=== PATIENT | female | born 1980 | race African-American/Black ===

== ENCOUNTER 2023-07-05 08:44 | Outpatient (AMB) | payer OTHER, SELFPAY ==
--- NOTE | 2023-07-05 08:55 | AM.OFFVISNUR ---
Intake Intake Visit Reasons: MMR vaccine Allergies No Known Allergies Allergy (Verified 07/05/23 08:55) Immunizations M-M-R II (PF) 1,000-12,500 TCID50/0.5 mL subcutaneous solution Performing Provider: Kiley House MD [facility] Administered by: Aurora Garland RN on 07/05/23 08:56 Dose Route Admin Location Dispensed Lot Number Expiration Date NDC Immigration Judge 0.5 mL subcut Left Arm 0.5 mL [id number] 10/04/24 5713-1133-32 [employer] & D VIS Given Date VIS Provided VIS Publication Date 07/05/23 Single Vaccine 21 Eligibility Eligibility Date Funding Source Not [facility] Eligible 07/05/23 Private Coding Assessment & Plan Assessment & Plan Orders: Orders MMR Immunization Today Z23 - Encounter for immunization
== END 2023-07-05 08:56 | disposition home or self-care (01) ==
PROVIDERS: PCP Internal Medicine; Visit Provider Internal Medicine
DX: Z23 Encounter for immunization (principal)
CPT/HCPCS: 90471; 90707

== ENCOUNTER 2023-09-22 11:43 | Outpatient (AMB) | payer OTHER, SELFPAY ==
--- NOTE | 2023-09-22 11:42 | MHC.OFFWIV ---
Intake Vital Signs 09/22/23 11:44 Height 5 ft 4 in Weight 159 lb 8 oz BMI 27.4 BP 110/82 Blood Pressure Location Lt brachial Position Sitting Pulse 74 Pulse Source Pulse Oximeter Pulse Oximetry (%) 98 Oxygen Delivery Method Room Air Intake Visit Reasons: Thyroid Med Refill Patient Tobacco Use Status: Never used Tobacco Allergies No Known Allergies Allergy (Verified 09/22/23 11:45) Medication List - Last Reconciled 09/22/23 by Usha Mccall MD levothyroxine mcg PO loteprednol etabonate 0.5% (Lotemax) drps ophthalmic (eye) Do you need a note to return to daycare/school/sports/work: No HPI Thyroid Med Refill HPI Details Patient is a 42-year-old female who moved from [place] in April Before she came she had all her labs done, thyroid test was within normal limit She has been taking same dose for a while She is in need of refill levothyroxine 88 mcg She has appointment with primary care in December Medication refilled [facility] Social History Patient Tobacco Use Status: Never used Tobacco Review of Systems Const All systems reviewed & are unremarkable except as noted in HPI and below Physical Exam Vital Signs: Last Vital Signs Pulse 74 09/22/23 11:44 BP 110/82 09/22/23 11:44 Pulse Ox 98 09/22/23 11:44 Oxygen Delivery Method Room Air 09/22/23 11:44 BMI result Body Mass Index 27.4 Const General: no acute distress Orientation/consciousness: patient oriented x3 Eyes General: appearance normal, both eyes and all related structures Neck Neck: Yes no lymphadenopathy Thyroid: Thyroid normal Resp Effort & Inspection: normal respiratory effort and able to speak in complete sentences Auscultation: clear to auscultation bilaterally Cardio Other: S1 S2 Neuro General: patient oriented x3 Psych Mental Status: mental status grossly normal Assessment & Plan Assessment & Plan (1) Other specified hypothyroidism: Code(s): E03.8 - Other specified hypothyroidism Plan Patient is a 42-year-old female who moved from [place] in April Before she came she had all her labs done, thyroid test was within normal limit She has been taking same dose for a while She is in need of refill levothyroxine 88 mcg She has appointment with primary care in December Medication refilled Medications: New levothyroxine 88 mcg PO ONCE 90 tabs 0RF 90 days Coding Level of Care Code New Pt Level 3 (15625) Diagnoses Other specified hypothyroidism E03.8
[2023-09-22 11:44] VITALS: BP 110/82; PULSE 74; O2SAT 98; BMI 27.4
== END 2023-09-22 11:56 | disposition home or self-care (01) ==
PROVIDERS: PCP Internal Medicine; Visit Provider Internal Medicine
DX: E03.8 Other specified hypothyroidism (principal)
CPT/HCPCS: 99203

== ENCOUNTER 2023-12-28 08:43 | Outpatient (AMB) | payer OTHER, SELFPAY ==
--- NOTE | 2023-12-28 08:47 | A.OFFPC_ITS ---
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/U (Thyriod Meds ) Intake Note: New patient, thyroid follow up Utility Assembler Required: No Accompanied by: Self / Same As Patient Allergies No Known Allergies Allergy (Verified 12/28/23 08:56) Medication List - Last Reconciled 12/28/23 by Kiley House MD levothyroxine 88 mcg PO ONCE 90 days loteprednol etabonate 0.5% (Lotemax) drps ophthalmic (eye) Tobacco use date assessed: 12/28/23 Dental Screening Dental Screen Date: 12/28/23 Did you have a dental visit in the last 12 months?: Yes Did you have a dental problem in the last 6 months where you did not have access to dental care?: No Was dental information given to patient?: Patient has dentist HPI HPI Comments History of Present Illness0 Details This is a 43-year-old female with hypothyroidism, dry eyes and overweight that comes to establish care. Compliant with medications. TSH will be order. Also has family history of diabetes and would like to have some fasting labs. Dry eyes are well control with artificial tears and follows with Ophthalmology. She is overweight and was advised to do diet and exercise. No chest pain or shortness on breath. No change in bowel or bladder habits. [facility] Surgical History No pertinent past surgical history Family History Mother Diabetes Father No problems noted. Family/Other Substance use disorder Mental health disorder Social History (Updated 12/28/23 @ 09:01 by Kiley House MD) Housing: House Alcohol intake: current Alcohol intake frequency: holidays/special occasions only Alcohol type: wine Patient Tobacco Use Status: Former Tobacco user e-Cigarette/Vaping Use: Never Used Second Hand Smoke Exposure: No service: No Current occupational status: employed Current occupational exposures/hazards: No Cognitive needs: No Hearing needs: No Vision needs: Yes Questionnaire PHQ-9 Over the last 2 weeks, how often have you been bothered by any of the following problems? 1. Little interest or pleasure in doing things: not at all 2. Feeling down, depressed, or hopeless: not at all 3. Trouble falling or staying asleep, or sleeping too much: not at all 4. Feeling tired or having little energy: not at all 5. Poor appetite or overeating: not at all 6. Feeling bad about yourself - or that you are a failure or have let yourself or your family down: not at all 7. Trouble concentrating on things, such as reading the newspaper or watching television: not at all 8. Moving or speaking so slowly that other people could have noticed. Or the o pposite - being so fidgety or restless that you have been moving around a lot more than usual: not at all 9. Thoughts that you would be better off or of hurting yourself in some way: not at all Total score: 0 Depression Screening Interpretation: Negative Depression Screening Done: Yes 07446 - PHQ-9 Billing: Yes Source: Developed by Drs. Gold Jimenez, Sima Villalobos, Alexis Madrid and colleagues, with an educational garrett from [employer]. Thrive Questionnaire Date Thrive assessed: 12/28/23 I am a: Patient What is your living situation today?: I have a steady place to live Within the past 12 months, did the food you bought not last and you didn't have the money to get more?: Never true Within the past 12 months, did you worry whether your food would run out before you got money to buy more?: Never true Do you have trouble paying for medicines?: No Do you have trouble getting transportation to medical appointments?: No Do you have trouble paying your heating and electricity bill?: No Do you have trouble taking care of your child, family member or friend?: No Do you have trouble with day-to-day activities such as bathing, preparing meals, shopping, managing finances, etc.?: No Are you currently unemployed and looking for a job?: No Are you interested in more education?: No Please select the resources that you would like help with: None Currently or been in a relationship where the following occur: no concerns reported THRIVE Score: 0 AUDIT C Alcohol Use Questionnaire (AUDIT-C) 1. How often do you have a drink containing alcohol?: Never Total Score: 0 Score Reviewed/Action Taken: No NGHIA-7 AMB Questionnaire NGHIA-7 Date NGHIA - 7 assessed: 12/28/23 Feeling nervous, anxious, or on edge: 0 = Not at all Not being able to stop or control worryin = Not at all Worrying too much about different things: 0 = Not at all Trouble relaxin = Not at all Being so restless that it is hard to sit still: 0 = Not at all Becoming easily annoyed or irritable: 0 = Not at all Feeling afraid as if something awful might happen: 0 = Not at all Total NGHIA-7 score (0-4 normal; 5-9 mild; 10-14 moderate; 15-21 severe): 0 Source: Developed by Drs. Gold Jimenez, Sima Villalobos, Alexis Madrid and colleagues, with an educational garrett from [employer]. NGHIA-7 Assessment Billing NGHIA-7 Assessment Tool: NGHIA-7 Assessment 92908 Review of Systems Const All systems reviewed & are unremarkable except as noted in HPI and below Eyes Reports no additional complaints, Denies change in vision and Denies other visual disturbances Card Denies chest pain at rest, Denies chest pain with activity, Denies edema, Denies irregular heart rhythm, Denies claudication, Denies dyspnea, Denies dyspnea on exertion, Denies orthopnea, Denies paroxysmal nocturnal dyspnea and Denies slow heart rate Resp Denies cough, Denies dyspnea and Denies dyspnea on exertion Musc Denies atrophy, Denies deformity and Denies limited range of motion Physical exam (Primary Care) Vital Signs: Last Vital Signs BP 108/70 12/28/23 08:48 BMI result Body Mass Index 26.1 Tobacco/Smoking Status: Tobacco use Status Tobacco use date assessed 12/28/23 12/28/23 08:53 Patient Tobacco Use Status Former Tobacco user 12/28/23 09:01 e-Cigarette/Vaping Use Never Used 12/28/23 09:01 PHQ-9: PHQ-9 Score PHQ-9: Total score 0 12/28/23 08:59 Depression Screening Interpretation: Negative Thrive Assessment: Date of Thrive Assessment Date Thrive assessed 12/28/23 12/28/23 08:53 Currently or been in a relationship where the following occur: no concerns reported Resp Effort & Inspection: normal respiratory effort Auscultation: clear to auscultation bilaterally Cardio Jugular venous distension: no JVD Rate: regular rate Rhythm: regular rhythm Heart sounds: S1 normal heart sound present and S2 normal heart sound present Extrem General: Yes full ROM Assessment and Plan Assessment & Plan (1) Hypothyroidism: Code(s): E03.9 - Hypothyroidism, unspecified Plan: Continue levothyroxine. Monitor TSH. (2) Dry eyes: Code(s): H04.123 - Dry eye syndrome of bilateral lacrimal glands Plan: Continue artificial tears. (3) Over weight: Code(s): E66.3 - Overweight Plan: Start diet and exercise. Orders: Orders Thyroid Stimulating Hormone Today E03.9 - Hypothyroidism, unspecified Comprehensive [place]. Panel Fast Today E66.3 - Overweight Lipid Panel Today E66.3 - Overweight Medications: Refilled levothyroxine 88 mcg PO ONCE 90 tabs 0RF 90 days Coding Level of Care Code Est Pt Level 3 (15941) Complex EM visit Add On G2211 Diagnoses Hypothyroidism E03.9 Dry eyes H04.123 Over weight E66.3 Additional Codes NGHIA-7 Assessment Billing - NGHIA-7 Assessment Tool: NGHIA-7 Assessment 85255 ([id number]) Time Spent (min) 21
[2023-12-28 08:48] VITALS: BP 108/70; BMI 26.1
== END 2023-12-28 09:10 | disposition home or self-care (01) ==
PROVIDERS: PCP Internal Medicine; Visit Provider Internal Medicine
DX: E03.9 Hypothyroidism, unspecified (principal); H04.123 Dry eye syndrome of bilateral lacrimal glands; E66.3 Overweight
CPT/HCPCS: 99213; G2211

== ENCOUNTER 2024-04-22 08:15 | Outpatient (REF) | payer OTHER, SELFPAY ==
[2024-04-22 10:04] LABS: Alanine Aminotransferase 25 U/L (0-31); Albumin Level 4.2 g/dL (3.5-5.0); Alkaline Phosphatase 87 U/L (39-117); Anion Gap 9 (12-20); Aspartate Amino Transferase 28 U/L (5-31); Bilirubin Total 0.4 mg/dL (0.0-1.0); Blood Urea Nitrogen 9 mg/dL (9-16); Calcium 9.9 mg/dL (8.4-10.2); Carbon Dioxide 28 mmol/L (22-29); Chloride 105 mmol/L (96-108); Cholesterol 182 mg/dL (<200); Estimated Glomerular Filt Rate > 60; Glucose Fasting 85 mg/dL (60-99); HDL Cholesterol 37 mg/dL (>40); LDL Cholesterol Calculated 128 mg/dL (<100); Potassium 4.3 mmol/L (3.3-5.1); Sodium 138 mmol/L (135-145); Total Protein 8.7 g/dL (6.5-8.0); Triglycerides 88 mg/dL (<150)
[2024-04-22 10:06] LABS: Thyroid Stimulating Hormone 3.35 uIU/mL (0.32-4.0)
== END 2024-04-22 08:16 | disposition home or self-care (01) ==
LOC: HO.LAB 08:15
PROVIDERS: PCP Internal Medicine; Visit Provider Internal Medicine
DX: E66.3 Overweight (principal); E03.9 Hypothyroidism, unspecified
CPT/HCPCS: 36415; 80053; 80061; 84443

== ENCOUNTER 2024-05-28 08:45 | Outpatient (AMB) | payer OTHER, SELFPAY ==
[2024-05-28 08:53] VITALS: BP 110/70; BMI 26.3
--- NOTE | 2024-05-28 08:53 | MHC.PC.OV ---
Vital Signs 05/28/24 08:53 Height 5 ft 4 in Weight 153 lb BMI 26.3 BP 110/70 Blood Pressure Location Lt brachial Position Sitting Intake Visit Reasons: Annual Exam Intake Note: Patient here for a physical exam Roofer Required: No Accompanied by: Self / Same As Patient Allergies No Known Allergies Allergy (Verified 05/28/24 09:06) Medication List - Last Reconciled 05/28/24 by Kiley House MD levothyroxine 88 mcg PO ONCE 90 days loteprednol etabonate 0.5% (Lotemax) drps ophthalmic (eye) Tobacco use date assessed: 12/28/23 Dental Screening Dental Screen Date: 05/28/24 Did you have a dental visit in the last 12 months?: Yes Did you have a dental problem in the last 6 months where you did not have access to dental care?: No Was dental information given to patient?: Patient has dentist HPI HPI Comments History of Present Illness Details This is a 43-year-old female that comes for her physical exam. Needs mammogram. Pap smears are up-to-date as per patient. Complains of low back pain that does not radiate to the legs and is not associated with leg numbness or tingling. This started after moving a heavy patient. The pain gets relieved by stretching exercises. X-ray will be ordered. Also has elevated total protein that will be repeated. [facility] Surgical History No pertinent past surgical history Family History Mother Diabetes Father No problems noted. Family/Other Substance use disorder Mental health disorder Social History Housing: House Alcohol intake: current Alcohol intake frequency: holidays/special occasions only Alcohol type: wine Patient Tobacco Use Status: Former Tobacco user e-Cigarette/Vaping Use: Never Used Second Hand Smoke Exposure: No service: No Current occupational status: employed Current occupational exposures/hazards: No Cognitive needs: No Hearing needs: No Vision needs: Yes Questionnaire PHQ-9 Over the last 2 weeks, how often have you been bothered by any of the following problems? 1. Little interest or pleasure in doing things: not at all 2. Feeling down, depressed, or hopeless: several days 3. Trouble falling or staying asleep, or sleeping too much: not at all 4. Feeling tired or having little energy: not at all 5. Poor appetite or overeating: not at all 6. Feeling bad about yourself - or that you are a failure or have let yourself or your family down: not at all 7. Trouble concentrating on things, such as reading the newspaper or watching television: several days 8. Moving or speaking so slowly that other people could have noticed. Or the opposite - being so fidgety or restless that you have been moving around a lot more than usual: not at all 9. Thoughts that you would be better off or of hurting yourself in some way: not at all Total score: 2 Depression Screening Interpretation: Positive Depression Screening Follow-up: Existing condition and Follow-up Visit Requested Depression Screening Done: Yes 37414 - PHQ-9 Billing: Yes Source: Developed by Drs. Gold Jimenez, Sima Villalobos, Alexis Madrid and colleagues, with an educational garrett from [employer]. Thrive Questionnaire Date Thrive assessed: 05/28/24 I am a: Patient What is your living situation today?: I have a steady place to live Within the past 12 months, did the food you bought not last and you didn't have the money to get more?: Never true Within the past 12 months, did you worry whether your food would run out before you got money to buy more?: Never true Do you have trouble paying for medicines?: No Do you have trouble getting transportation to medical appointments?: No Do you have trouble paying your heating and electricity bill?: No Do you have trouble taking care of your child, family member or friend?: No Do you have trouble with day-to-day activities such as bathing, preparing meals, shopping, managing finances, etc.?: No Are you currently unemployed and looking for a job?: No Are you interested in more education?: Yes Please select the resources that you would like help with: None Currently or been in a relationship where the following occur: I choose not to answer THRIVE Score: 0 AUDIT C Alcohol Use Questionnaire (AUDIT-C) 1. How often do you have a drink containing alcohol?: Never Total Score: 0 NGHIA-7 AMB Questionnaire NGHIA-7 Date NGHIA - 7 assessed: 05/28/24 Feeling nervous, anxious, or on edge: 3 = Nearly every day Not being able to stop or control worryin = Nearly every day Worrying too much about different things: 3 = Nearly every day Trouble relaxin = Not at all Being so restless that it is hard to sit still: 0 = Not at all Becoming easily annoyed or irritable: 1 = Several days Feeling afraid as if something awful might happen: 0 = Not at all Total NGHIA-7 score (0-4 normal; 5-9 mild; 10-14 moderate; 15-21 severe): 10 Source: Developed by Drs. Gold Jimenez, Sima Vlilalobos, Alexis Madrid and colleagues, with an educational garrett from [employer]. NGHIA-7 Assessment Billing NGHIA-7 Assessment Tool: NGHIA-7 Assessment 03020 Review of Systems Const All systems reviewed & are unremarkable except as noted in HPI and below Card Denies chest pain at rest, Denies chest pain with activity, Denies edema, Denies irregular heart rhythm, Denies claudication, Denies dyspnea, Denies dyspnea on exertion, Denies orthopnea, Denies paroxysmal nocturnal dyspnea and Denies slow heart rate Resp Denies cough, Denies dyspnea and Denies dyspnea on exertion GI Denies abdominal pain, Denies change in bowel habits, Denies excessive flatus, Denies nausea and Denies vomiting Musc Reports back pain Neuro Denies behavioral changes and Denies lack of coordination Psych Denies behavioral changes Physical exam (Primary Care) Vital Signs: Last Vital Signs BP 110/70 05/28/24 08:53 BMI result Body Mass Index 26.3 Tobacco/Smoking Status: Tobacco use Status Tobacco use date assessed 12/28/23 05/28/24 08:59 Patient Tobacco Use Status Former Tobacco user 05/28/24 08:59 e-Cigarette/Vaping Use Never Used 05/28/24 08:59 PHQ-9: PHQ-9 Score PHQ-9: Total score 2 05/28/24 09:23 Depression Screening Interpretation: Positive Depression Screening Follow-up: Existing condition and Follow-up Visit Requested Thrive Assessment: Date of Thrive Assessment Date Thrive assessed 05/28/24 05/28/24 08:59 Currently or been in a relationship where the following occur: I choose not to answer HENMT Head: Yes normal to inspection, Yes normocephalic and Yes atraumatic Ears: external ears normal Eyes General: appearance normal, both eyes and all related structures Eyelids: Yes eyelids normal Conjunctivae: conjunctivae normal Neck Neck: Yes normal visual inspection and Yes supple Resp Effort & Inspection: normal respiratory effort Auscultation: clear to auscultation bilaterally Cardio Jugular venous distension: no JVD Rate: regular rate Rhythm: regular rhythm Heart sounds: S1 normal heart sound present and S2 normal heart sound present GI Inspection: Yes normal to inspection Palpation (GI): Soft to palpation and nontender Auscultation: normal bowel sounds Skin General skin exam: no rashes or lesions noted Neuro General: no focal motor deficits Extrem General: Yes full ROM Psych Appearance: grossly normal Office Procedures Flu Questionnaire Does the patient have a severe egg allergy?: No Immunizations Fluarix Triv [id number] (PF) 45 mcg (15 mcg x 3)/0.5 mL IM syringe Performing Provider: Kiley House MD [facility] [place] Documented (not given) by: ALMAZ Canales on 05/28/24 09:23 Reason Not Given: Not Given Coding Level of Care Code Est Pt Level 3 (79392) Est Pt Prev Care 40-64y(71948) Diagnoses Physical exam Z00.00 Lumbar pain M54.50 Elevated total protein R77.8 Additional Codes NGHIA-7 Assessment Billing - NGHIA-7 Assessment Tool: NGHIA-7 Assessment 31686 ([id number]) Time Spent (min) 32 Assessment & Plan Assessment & Plan (1) Physical exam: Code(s): Z00.00 - Encounter for general adult medical examination without abnormal findings Category: Medical Plan: Repeat in a year. (2) Lumbar pain: Code(s): M54.50 - Low back pain, unspecified Category: Medical Plan: X-ray ordered. Continue doing stretching exercises. (3) Elevated total protein: Code(s): R77.8 - Other specified abnormalities of plasma proteins Category: Medical Plan: Repeat elevated total protein. Protein electrophoresis ordered. Orders: Orders Influenza [id number] Immunization Today Z23 - Encounter for immunization MM tomosynthesis screening BI Today Z12.31 - Encounter for screening mammogram for malignant neoplasm of breast Total Protein Today R77.8 - Other specified abnormalities of plasma proteins XR lumbar spine 2-3V Today M54.50 - Low back pain, unspecified Protein Electrophoresis, Serum Today R77.8 - Other specified abnormalities of plasma proteins
== END 2024-05-28 09:30 | disposition home or self-care (01) ==
LOC: HO.HMCH 08:45
PROVIDERS: PCP Internal Medicine; Visit Provider Internal Medicine
DX: Z00.00 Encounter for general adult medical examination without abnormal findings (principal); M54.50 Low back pain, unspecified; R77.8 Other specified abnormalities of plasma proteins

== ENCOUNTER → 2024-05-28 08:45 | Outpatient (BNVA) | payer OTHER, SELFPAY | PROVIDERS: PCP Internal Medicine; Visit Provider Internal Medicine | DX: Z00.01 Encounter for general adult medical examination with abnormal findings (principal); M54.50 Low back pain, unspecified; R77.8 Other specified abnormalities of plasma proteins | CPT/HCPCS: 96127 ==

== ENCOUNTER 2024-05-31 08:09 | Outpatient (REF) | payer OTHER, SELFPAY ==
[2024-05-31 09:22] LABS: Total Protein 8.5 g/dL (6.5-8.0)
[2024-06-03 12:43] LABS: Prot Elec - Albumin 4.2 g/dL (3.8-4.8); Prot Elec - Alpha1 0.3 g/dL (0.2-0.3); Prot Elec - Alpha2 0.8 g/dL (0.5-0.9); Prot Elec - Beta 1 0.4 g/dL (0.4-0.6); Prot Elec - Beta 2 0.4 g/dL (0.2-0.5); Prot Elec - Total Protein 8.1 g/dL (6.1-8.1)
== END 2024-05-31 08:10 | disposition home or self-care (01) ==
LOC: HO.LAB 08:09
PROVIDERS: PCP Internal Medicine; Visit Provider Internal Medicine
DX: R77.8 Other specified abnormalities of plasma proteins (principal); Z23 Encounter for immunization
CPT/HCPCS: 36415; 84155; 84165; 90471; 90656

== ENCOUNTER 2024-05-31 09:31 | Outpatient (AMB) | payer OTHER, SELFPAY ==
--- NOTE | 2024-05-31 09:46 | AM.OFFVISNUR ---
Intake Visit Reasons: flu shot Allergies No Known Allergies Allergy (Verified 05/28/24 09:06) Office Procedures Flu Questionnaire Does the patient have a severe egg allergy?: No Does the patient have severe life threatening allergies?: No Does the patient have a fever or illness today?: No Has the patient ever had Guillain-[place] Syndrome?: No Has the patient ever had any past reaction to a flu shot?: No Assessment & Plan Assessment & Plan Orders: Orders Influenza [id number] Immunization Today Z23 - Encounter for immunization Medications: New Fluarix Triv [id number] (PF) (flu vacc [id number] 6mos up(PF)) 0.5 mL IM ONCE 0.5 mL 0RF NS Z23 - Encounter for immunization
== END 2024-05-31 10:29 | disposition home or self-care (01) ==
PROVIDERS: PCP Internal Medicine; Visit Provider Internal Medicine
DX: Z23 Encounter for immunization (principal)

== ENCOUNTER 2024-06-07 08:16 | Outpatient (REF) | payer OTHER, SELFPAY ==
[2024-06-10 16:02] LABS: Immunoglobulin G Subclass 1 1624 mg/dL (382-929); Immunoglobulin G Subclass 2 259 mg/dL (241-700); Immunoglobulin G Subclass 3 65 mg/dL (22-178); Immunoglobulin G Subclass 4 9.7 mg/dL (4-86); Immunoglobulin G Total 2196 mg/dL (600-1640)
== END 2024-06-07 08:17 | disposition home or self-care (01) ==
LOC: HO.LAB 08:16
PROVIDERS: PCP Internal Medicine; Visit Provider Internal Medicine
DX: R77.1 Abnormality of globulin (principal)
CPT/HCPCS: 36415; 82784

== ENCOUNTER 2024-07-15 14:49 | Outpatient (REF) | payer OTHER, SELFPAY | END 2024-07-15 14:50 | disposition home or self-care (01) | LOC: HO.MAMMO 14:49 | PROVIDERS: PCP Internal Medicine; Visit Provider Internal Medicine | DX: Z12.31 Encounter for screening mammogram for malignant neoplasm of breast (principal) | CPT/HCPCS: 77063; 77067 ==

== ENCOUNTER → 2024-07-15 15:30 | Outpatient (BNV) | payer OTHER, SELFPAY | PROVIDERS: PCP Internal Medicine; Visit Provider Internal Medicine | DX: Z12.31 Encounter for screening mammogram for malignant neoplasm of breast (principal) | CPT/HCPCS: 77063; 77067 ==

== ENCOUNTER → 2024-07-22 08:59 | Outpatient (BNV) | payer OTHER, SELFPAY | PROVIDERS: PCP Internal Medicine; Visit Provider Internal Medicine Medical Oncology | DX: R79.82 Elevated C-reactive protein (CRP) (principal); R77.1 Abnormality of globulin | CPT/HCPCS: 99204 ==

== ENCOUNTER 2024-09-04 12:26 | Outpatient (AMB) | payer OTHER, SELFPAY ==
--- NOTE | 2024-09-04 12:46 | A.OFFVIS_ITS ---
Vital Signs 09/04/24 12:47 Height 5 ft 4 in Weight 140 lb BMI 24.0 BP 112/68 Intake Visit Reasons: New Patient annual/ DO NOT R/S It Architecture Analyst: It Architecture Analyst Present (Lisa) Allergies No Known Allergies Allergy (Verified 09/04/24 12:47) HPI Comments Details: She is a premenopausal woman presenting for annual examination. Doing well with no hotel security officer concerns: I'm going through early menopause , Tingling in feet, leg cramps, breast tenderness, hot and cold flashes, brain fog, anxiety, gas, bloating and burping, bad breath odor. Regular monthly menses w/Mirena, since April, used for AUB, inserted approx. 3+yrs. ago. Currently is not sexually active. She denies vaginal itching and irritation. STI screening offered; she accepts. She tries to eat healthy and stays active with exercise. Denies family history of breast, ovarian or colon cancer. Last pap smear 09/2022, negative. Mammogram: 2023-additional views were requested. [facility] Medical History (Updated 09/04/24 @ 13:57 by Annalise Paige CNM) IUD (intrauterine device) in place IUD surveillance Heavy menses Surgical History (Updated 07/22/24 @ 09:42 by Rohith Perales MD) No pertinent past surgical history Family History Mother Diabetes Father No problems noted. Family/Other Substance use disorder Mental health disorder Social History (Updated 07/22/24 @ 09:13 by Lew Garland) Household Members: Family Housing: House Alcohol intake: current Alcohol intake frequency: holidays/special occasions only Alcohol type: wine Patient Tobacco Use Status: Former Tobacco user e-Cigarette/Vaping Use: Never Used Second Hand Smoke Exposure: No service: No Current occupational status: employed Current occupational exposures/hazards: No Cognitive needs: No Hearing needs: No Vision needs: Yes Female Reproductive History Menstrual control method: progestin IUCD (2020) Total pregnancies: 7 Full term: 4 Number of Living Children: 4 Ab induced: 1 Ab spontaneous: 2 Date of last pap smear: 09/21/22 (neg per pt) History of abnormal pap smear: Yes (abn pap in 20's normal since) Date of Mammogram: 07/15/24 (Birad 0) Review of Systems Const All systems reviewed & are unremarkable except as noted in HPI and below Reports as per HPI Eyes Reports no additional complaints ENT Reports no additional complaints Card Reports no additional complaints Resp Reports no additional complaints GI Reports as per HPI and Reports no additional complaints Reports as per HPI Musc Reports no additional complaints Skin/Breast Reports as per HPI Neuro Reports no additional complaints Psych Reports no additional complaints Endo Reports no additional complaints Haresh/Lymph Reports no additional complaints Aller/Immun Reports no additional complaints Physical Exam Vital Signs: Last Vital Signs BP 112/68 09/04/24 12:47 BMI result Body Mass Index 24.0 Const General: cooperative, healthy appearing, no acute distress, well developed and alert Orientation/consciousness: patient oriented x3 HEENT Head: Yes normal to inspection Eyes General: appearance normal, both eyes and all related structures Neck Neck: Yes normal visual inspection Thyroid: Thyroid normal Chest Chest palpation & inspection: normal inspection of the chest and other (no puckering, dimpling, peau de orange, retraction, discharge, masses) Breast/axilla inspection: normal inspection of the breasts Breast/axilla palpation: normal palpation of the breasts Resp Effort & Inspection: normal respiratory effort GI Inspection: Yes normal to inspection Palpation (GI): Soft to palpation Rectal Exam - Female: deferred General: Yes bladder normal to palpation External Female Exam: normal external appearance and normal appearance of the urethra Speculum Exam - Vagina: normal appearance of the vagina, normal palpation and normal vaginal discharge Speculum Exam - Cervix: normal appearance of the cervix, normal palpation and Other cervical findings present (IUD string short at the os) Bimanual exam- vagina & uterus: normal bimanual exam, normal palpation, uterine size normal, bladder normal to palpation, normal palpation and non-tender Bimanual Exam- Adnexa, other: no masses Skin General skin exam: no rashes or lesions noted Rashes: no rashes Neuro General: patient oriented x3 Cognition (Neuro): normal cognition Extrem General: Yes normal to inspection Psych Attitude: cooperative Thought process: Normal thought process present Assessment & Plan Assessment & Plan (1) Encounter for well woman exam with routine gynecological exam: Code(s): Z01.419 - Encounter for gynecological examination (general) (routine) without abnormal findings Category: Medical Plan: Discussed: Current recommendations for pap smears per ASCCP guidelines. Breast awareness and periodic breast exams. Mammogram yearly. Maintain a healthy lifestyle including a well balanced diet and routine exercise. Use condoms for STI and prevention. Monitor bleeding if any increase heavier prolonged to notify the office. Colonoscopy >45, or at risk sooner. Has a appointment for pre counseling. Advised to discuss with her GI provider all the symptoms she mentioned today. Patient verbalizes understanding and agrees to the plan of care. She was given opportunity to ask questions and all questions were answered to the best of my ability. RTO in one year for annual hotel security officer examination. This note is constructed using voice recognition software. While every effort has been made to ensure accuracy, fuel retrofitting technician errors may have been included. (2) Heavy menses: Code(s): N92.0 - Excessive and frequent menstruation with regular cycle Category: Medical Qualifiers: Menorrhagia type: with regular cycle Qualified Code(s): N92.0 - Excessive and frequent menstruation with regular cycle Plan: Obtaining cervical cultures, pelvic ultrasound to see if there is any other causative reasons for heavy menses. Consider changing out IUD sooner if bleeding is increasing and test are all negative. (3) IUD surveillance: Code(s): Z30.431 - Encounter for routine checking of intrauterine contraceptive device Category: Medical Plan Plan pelvic ultrasound just to ascertain IUD is positioning. Follow up in person to discuss test results. Total time I personally spent on visit and management today: ?15 minutes. Time spent included review of pertinent office notes in the electronic health record; review of laboratory and imaging results; review of personal family medical history; discussing diagnosis and plan of care with the patient; documenting the encounter in the EMR. Orders: Orders Hepatitis C Antibody Reflex Today Z20.2 - Contact with and (suspected) exposure to infections with a predominantly sexual mode of transmission Hepatitis B Core Antibody Today Z20.2 - Contact with and (suspected) exposure to infections with a predominantly sexual mode of transmission Syphilis Screen Today Z20.2 - Contact with and (suspected) exposure to infections with a predominantly sexual mode of transmission US pelvic and transvaginal Today N92.0 - Excessive and frequent menstruation with regular cycle, Z30.431 - Encounter for routine checking of intrauterine contraceptive device Bacterial Vaginosis Panel Today N92.0 - Excessive and frequent menstruation with regular cycle, Z20.2 - Contact with and (suspected) exposure to infections with a predominantly sexual mode of transmission CT NG by PCR Today N92.0 - Excessive and frequent menstruation with regular cycle, Z20.2 - Contact with and (suspected) exposure to infections with a predominantly sexual mode of transmission HPV High risk Today Z01.419 - Encounter for gynecological examination (general) (routine) without abnormal findings, Z12.4 - Encounter for screening for malignant neoplasm of cervix HIV Ab/Ag Today Z20.2 - Contact with and (suspected) exposure to infections with a predominantly sexual mode of transmission Pap Smear Today Z01.419 - Encounter for gynecological examination (general) (routine) without abnormal findings Coding Level of Care Code New Pt Level 2 (04247) New Pt Prev Care 40-64y(67924) Diagnoses Encounter for well woman exam with routine gynecological exam Z01.419 Menorrhagia with regular cycle N92.0 Menorrhagia type: with regular cycle IUD surveillance Z30.431
[2024-09-04 12:47] VITALS: BP 112/68; BMI 24.0
== END 2024-09-04 14:11 | disposition home or self-care (01) ==
PROVIDERS: PCP Internal Medicine; Visit Provider Advanced Practice Midwife
DX: Z01.419 Encounter for gynecological examination (general) (routine) without abnormal findings (principal); N92.0 Excessive and frequent menstruation with regular cycle; R10.2 Pelvic and perineal pain; Z97.5 Presence of (intrauterine) contraceptive device
CPT/HCPCS: 99212; 99386; 99459

== ENCOUNTER 2024-09-04 12:26 | Outpatient (REF) | payer OTHER, SELFPAY ==
[2024-09-04 18:00] LABS: Bacterial Vaginosis PCR POSITIVE (Negative); Candida Group PCR NOT DETECTED (Not Detect); Candida glab krusei PCR NOT DETECTED (Not Detect); Trichomonas vaginalis PCR NOT DETECTED (Not Detect)
[2024-09-05 06:50] LABS: CT PCR NOT DETECTED (Not Detect.); NG PCR NOT DETECTED (Not Detect.)
== END 2024-09-04 12:27 | disposition home or self-care (01) ==
LOC: HO.LAB 12:26
PROVIDERS: PCP Internal Medicine; Visit Provider Advanced Practice Midwife
DX: Z01.419 Encounter for gynecological examination (general) (routine) without abnormal findings (principal); Z20.2 Contact with and (suspected) exposure to infections with a predominantly sexual mode of transmission; N92.0 Excessive and frequent menstruation with regular cycle
CPT/HCPCS: 81515; 87491; 87591

== ENCOUNTER 2024-09-04 13:28 | Outpatient (REF) | payer OTHER, SELFPAY ==
[2024-09-11 14:39] LABS: HPV Genotype 16 Negative (Negative); HPV Genotype 18 Negative (Negative); HPV High Risk Positive (Negative)
== END 2024-09-04 13:29 | disposition home or self-care (01) ==
LOC: HO.LNP 13:28
PROVIDERS: Visit Provider Advanced Practice Midwife
DX: Z01.419 Encounter for gynecological examination (general) (routine) without abnormal findings (principal)
CPT/HCPCS: 87626; 88175

== ENCOUNTER 2024-09-13 08:48 | Outpatient (REF) | payer OTHER, SELFPAY ==
--- NOTE | ~2024-09-13 | US_ITS ---
EXAMINATION: MM DIAGNOSTIC DIGITAL BREAST TOMOSYNTHESIS, LEFT Limited left ultrasound. CLINICAL INFORMATION: Call back from screening for left breast focal asymmetry. COMPARISON: Mammography: Available priors on PACS. TECHNIQUE: Digital breast tomosynthesis is performed in both the craniocaudal and mediolateral oblique views along with computer-aided detection (CAD). Synthesized 2D images are generated from the tomosynthesis. Line Limited left breast ultrasound. FINDINGS: There are scattered areas of fibroglandular density (ACR BI-RADS breast composition Category b). The previously seen asymmetry in the upper outer left breast middle depth does not persist on additional imaging projections and likely represented overlapping breast tissue. There are no significant masses, abnormal calcifications, or other abnormalities. Targeted color Doppler ultrasound scanning from 10-2 o'clock demonstrates normal fibroglandular breast tissue. There is no sonographic abnormality. US/US breast LT limited mamm only IMPRESSION: Normal mammographic additional views and no sonographic abnormality. ASSESSMENT: BI-RADS BI-RADS 1 - Negative RECOMMENDATION: 1 year F/U Results were provided to the patient at time of visit by the technologist. This patient's information was entered into a reminder system with a target due date for their next mammogram. Electronically signed by: Esthela Vicente DO 09/13/2024 09:51 AM JALEN
[2024-09-13 12:24] LABS: Alanine Aminotransferase 33 U/L (0-31); Albumin Level 4.3 g/dL (3.5-5.0); Alkaline Phosphatase 69 U/L (39-117); Aspartate Amino Transferase 35 U/L (5-31); Bilirubin Direct 0.2 mg/dL (0.0-0.5); Bilirubin Total 0.4 mg/dL (0.0-1.0); Total Protein 8.8 g/dL (6.5-8.0)
[2024-09-13 12:40] LABS: Syphilis Screen Nonreactive (Nonreactive)
[2024-09-13 12:42] LABS: HBc Num1 0.32 S/CO (0.00-0.79); HIV AB/AG Nonreactive (Nonreactive); HIV Num 1 0.05 S/CO (0.00-0.99); Hepatitis B Core Antibody Nonreactive (Nonreactive); ~Hepatitis C Antibody Nonreactive (Nonreactive)
== END 2024-09-13 08:49 | disposition home or self-care (01) ==
LOC: HO.MAMMO 08:48
PROVIDERS: Absent Provider Advanced Practice Midwife; PCP Internal Medicine; Visit Provider Internal Medicine
DX: N64.89 Other specified disorders of breast (principal); Z20.2 Contact with and (suspected) exposure to infections with a predominantly sexual mode of transmission; R74.01 Elevation of levels of liver transaminase levels; R92.322 Mammographic fibroglandular density, left breast
CPT/HCPCS: 36415; 76642; 77061; 77065; 80076; 86704; 86780; 86803; 87389

== ENCOUNTER → 2024-09-13 09:15 | Outpatient (BNV) | payer OTHER, SELFPAY | PROVIDERS: PCP Internal Medicine; Visit Provider Internal Medicine | DX: R92.2 Inconclusive mammogram (principal); R92.322 Mammographic fibroglandular density, left breast | CPT/HCPCS: 76642; 77061; 77065 ==

== ENCOUNTER 2024-09-23 09:48 | Outpatient (AMB) | payer OTHER, SELFPAY ==
--- NOTE | 2024-09-23 10:04 | AM.OFFVISNUR ---
Intake Visit Reasons: Hep B vaccine Allergies No Known Allergies Allergy (Verified 09/04/24 12:47) Immunizations Recombivax HB (PF) 10 mcg/mL intramuscular suspension Performing Provider: Kiley House MD [place] [facility] Administered by: Joy Ortiz LPN on 09/23/24 10:04 Dose Route Admin Location Dispensed Lot Number Expiration Date [facility] Scuba Instructor 1 mL IM Left Deltoid 1 mL [id number] 03/16/26 [id number] [employer] VIS Given Date VIS Provided VIS Publication Date 09/23/24 Single Vaccine 22 Eligibility Eligibility Date Funding Source Not [facility] Eligible 09/23/24 Private Assessment & Plan Assessment & Plan Orders: Orders Hepatitis B Adult Immunization Today Z23 - Encounter for immunization Medications: New Recombivax HB (PF) (hepatitis B virus vacc.rec(PF)) 1.0 mL IM ONCE 1 mL 0RF NS Z23 - Encounter for immunization Coding
== END 2024-09-23 10:01 | disposition home or self-care (01) ==
PROVIDERS: PCP Internal Medicine; Visit Provider Internal Medicine
DX: Z23 Encounter for immunization (principal)

== ENCOUNTER 2024-09-23 09:48 | Outpatient (REF) | payer OTHER, SELFPAY ==
--- NOTE | ~2024-09-23 | XR_ITS ---
.EXAMINATION: XR LUMBOSACRAL SPINE CLINICAL INFORMATION: M54.50 - Low back pain, unspecified COMPARISON: None available. TECHNIQUE: Three views of the lumbosacral spine. FINDINGS: No acute cortical disruption or malalignment. No lytic or blastic lesions. There is a T-shaped contraceptive device overlapping the sacrum. XR/XR lumbar spine 2-3V IMPRESSION: No acute fracture or listhesis. Electronically signed by: Abilio Ann MD 09/23/2024 01:34 PM JALEN WALKER
[2024-09-23 12:21] LABS: Vitamin D 25-OH Total 30.2 ng/mL (>30)
[2024-09-23 12:38] LABS: Folate 15.2 ng/mL (> or = 4.0); Vitamin B12 982 pg/mL (200-900)
[2024-09-24 22:28] LABS: Prot Elec - Albumin 4.3 g/dL (3.8-4.8); Prot Elec - Alpha1 0.3 g/dL (0.2-0.3); Prot Elec - Alpha2 0.7 g/dL (0.5-0.9); Prot Elec - Beta 1 0.4 g/dL (0.4-0.6); Prot Elec - Beta 2 0.3 g/dL (0.2-0.5); Prot Elec - Gamma 1.8 g/dL (0.8-1.7); Prot Elec - Total Protein 7.8 g/dL (6.1-8.1)
== END 2024-09-23 09:49 | disposition home or self-care (01) ==
LOC: HO.XRAY 09:48
PROVIDERS: PCP Internal Medicine; Visit Provider Internal Medicine
DX: Z23 Encounter for immunization (principal); M54.50 Low back pain, unspecified; R77.8 Other specified abnormalities of plasma proteins; E03.9 Hypothyroidism, unspecified; E53.8 Deficiency of other specified B group vitamins; E55.9 Vitamin D deficiency, unspecified
CPT/HCPCS: 36415; 72100; 82306; 82607; 82746; 84165; 84443; 90471; 90746

== ENCOUNTER → 2024-09-23 10:31 | Outpatient (BNV) | payer OTHER, SELFPAY | PROVIDERS: PCP Internal Medicine; Visit Provider Radiology Diagnostic Radiology | DX: M54.50 Low back pain, unspecified (principal) | CPT/HCPCS: 72100 ==

== ENCOUNTER 2024-10-04 10:34 | Outpatient (REF) | payer OTHER, SELFPAY ==
--- NOTE | ~2024-10-04 | US_ITS ---
CLINICAL HISTORY: N92.0 - Excessive and frequent menstruation with regular cycle US pelvis transvaginal Comparison: None Findings: Transvaginal scanning performed. Anteverted uterus is 8.5 cm length. 1.1 cm fundal leiomyoma. Endometrium 8 mm thickness. an IUD is present. small endometrial cyst measuring 3 mm. Right ovary 2.9 x 1.9 x 2.3 cm. Left ovary 3.2 x 1.5 x 2.5 cm. Normal color Doppler of both ovaries. No free fluid. IMPRESSION: 1. IUD adequately positioned. 2. Small endometrial cyst. 3. Small fundal leiomyoma. This document has been electronically signed by: Stalin Damian MD on 10/05/2024 08:49:58
== END 2024-10-04 10:35 | disposition home or self-care (01) ==
LOC: HO.US 10:34
PROVIDERS: PCP Internal Medicine; Visit Provider Advanced Practice Midwife
DX: N92.0 Excessive and frequent menstruation with regular cycle (principal); Z30.431 Encounter for routine checking of intrauterine contraceptive device
CPT/HCPCS: 76830; 76856

== ENCOUNTER → 2024-10-04 10:36 | Outpatient (BNV) | payer OTHER, SELFPAY | PROVIDERS: PCP Internal Medicine; Visit Provider Radiology Diagnostic Radiology | DX: D25.9 Leiomyoma of uterus, unspecified (principal); N80.109 Endometriosis of ovary, unspecified side, unspecified depth; Z97.5 Presence of (intrauterine) contraceptive device | CPT/HCPCS: 76830; 76856 ==

== ENCOUNTER 2024-10-10 08:43 | Outpatient (REF) | payer OTHER, SELFPAY | END 2024-10-10 08:44 | disposition home or self-care (01) | LOC: HO.US 08:43 | PROVIDERS: PCP Internal Medicine; Visit Provider Internal Medicine | DX: Z13.89 Encounter for screening for other disorder (principal) ==

== ENCOUNTER 2024-10-15 11:44 | Outpatient (REF) | payer OTHER, SELFPAY ==
[2024-10-16 14:03] LABS: Transglutaminase IgA 92.6 U/mL
== END 2024-10-15 11:45 | disposition home or self-care (01) ==
LOC: HO.LAB 11:44
PROVIDERS: PCP Internal Medicine; Visit Provider Nurse Practitioner Family
DX: R10.11 Right upper quadrant pain (principal); F41.9 Anxiety disorder, unspecified; K59.00 Constipation, unspecified; R74.01 Elevation of levels of liver transaminase levels; R10.13 Epigastric pain; R14.0 Abdominal distension (gaseous); R19.6 Halitosis
CPT/HCPCS: 36415; 86364

== ENCOUNTER 2024-10-15 11:44 | Outpatient (AMB) | payer OTHER, SELFPAY ==
[2024-10-15 11:51] VITALS: BP 128/76; PULSE 78; O2SAT 99; BMI 23.1
--- NOTE | 2024-10-15 11:51 | A.OFFVIS_ITS ---
Vital Signs 10/15/24 11:51 Height 5 ft 4 in Weight 134 lb 7.712 oz BMI 23.1 BP 128/76 Blood Pressure Location Rt brachial Position Sitting Pulse 78 Pulse Source Pulse Oximeter Pulse Oximetry (%) 99 Oxygen Delivery Method Room Air Intake Visit Reasons: Dr. Perales pt. Dyspepsia Intake Note: NEW PATIENT for initial eval, dyspepsia. Prior hx of colo/egd? N Chief Complaint; C/O general GI upset, bloating/gas, foul breath odor intermittently. Pt believes she has eaten something approximately 1 hour ago. No PPI tx. No hx of reflux. Pt is concerned about possibility for early onset jaundice? Pt believes she has yellowing of the eyes and would like to r/o possibility. Pt has US scheduled for 10/17 for fatty liver per PCP. Pt has been making dietary changes with mixed results (cessation of consumption of red meat and dairy products). Supervisor Paper Testing Required: No Accompanied by: Self / Same As Patient Allergies No Known Allergies Allergy (Verified 10/15/24 11:52) Medication List - Last Reconciled 10/15/24 by JENNY Carmona biotin 1 mg PO DAILY cholecalciferol (vitamin D3) 50 mcg PO DAILY docusate sodium 100 mg PO BEDTIME lactobacillus combination no.4 (Probiotic) 3,000 mmu cells PO DAILY levothyroxine 88 mcg PO ONCE 90 days omega-3 fatty acids 500 mg PO DAILY HPI HPI Dr. Perales pt. Dyspepsia: Details: 44-year-old female with past medical history of anxiety, transaminitis, hypothyroidism is here today for initial consultation. 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 Patient was sent to us for symptoms of epigastric pain postp randially no matter what she eats. Patient admits to be eating fast food few months ago, however patient reports that she stopped and she has been eating healthier. Patient reports that she eats dinner at noon time and then her last meal at 6 pm which is the salad. Patient reports epigastric pain and bloating postprandially as well as epigastric pain. Reports sometimes bad smell in her mouth sometimes feels like her breath smells like feces. Patient will need to follow-up with her dentist, however was told in the past that she does not have periodontal disease. Upon reviewing patient's chart noticed that patient has a weight loss of 25 lb in 1 year. Patient admits to changing her diet and only eating twice a day. Patient admits to having fear of illnesses. Patient any time she hears that she has abnormal values she thinks about it and gets very upset. Patient reports that she rides everything down in her note book about her symptoms almost daily. Patient was found to have a minimally elevated liver enzymes and was upset and told that she is going to end up with liver disease and for few weeks she thought that she was jaundice. Patient also states that she stopped eating protein as she saw that her protein level was minimally high. Patient seems little anxious, however we have discussed possibly seeing a therapist who can help her deal with her phobias and anxiety. Patient reports that she was referred and has not heard from them yet. Patient was encouraged to call them. [facility] Medical History (Updated 10/16/24 @ 20:59 by Hollie Keller, [facility]) Over weight Abnormal Pap smear of cervix IUD (intrauterine device) in place IUD surveillance Heavy menses Surgical History No pertinent past surgical history Family History Mother Diabetes Father Parkinson disease Family/Other Substance use disorder Mental health disorder Maternal Grandfather Heart transplant status Social History Household Members: Family Housing: House Alcohol intake: former Patient Tobacco Use Status: Never used Tobacco e-Cigarette/Vaping Use: Never Used Second Hand Smoke Exposure: No service: No Current occupational status: employed Current occupational exposures/hazards: No Cognitive needs: No Hearing needs: No Vision needs: Yes Review of Systems Const Denies weight gain and Denies weight loss ENT Reports no additional complaints, Denies dysphagia and Denies odynophagia Card Reports no additional complaints Resp Reports no additional complaints GI Denies abdominal pain, Denies belching, Denies melena, Reports bloating, Denies change in bowel habits, Denies dysphagia, Denies excessive flatus, Denies dyspepsia, Denies heartburn, Denies diarrhea, Denies loose stools, Denies nausea, Denies odynophagia and Denies vomiting Musc Reports no additional complaints Neuro Reports no additional complaints Psych Reports no additional complaints Endo Reports no additional complaints Physical Exam Vital Signs: Last Vital Signs Pulse 78 10/15/24 11:51 BP 128/76 10/15/24 11:51 Pulse Ox 99 10/15/24 11:51 Oxygen Delivery Method Room Air 10/15/24 11:51 BMI result Body Mass Index 23.1 Const General: healthy appearing, no acute distress and well developed Nutritional Appearance: well nourished Orientation/consciousness: patient oriented x3 Cardio Rate: regular rate GI Inspection: Yes normal to inspection and No distended Palpation (GI): Soft to palpation, not firm, nontender and No hepatosplenomegaly present Auscultation: normal bowel sounds General: Yes no CVA tenderness Back/Spine/Pelvis Back: no CVA tenderness Skin General skin exam: elasticity normal, turgor normal and dry skin Neuro General: patient oriented x3 Psych Appearance: grossly normal Mental Status: mental status grossly normal Affect: Anxious affect present Insight: Good insight present (Psych) Assessment & Plan Assessment & Plan (1) Anxiety: Code(s): F41.9 - Anxiety disorder, unspecified Category: Medical (2) Transaminitis: Code(s): R74.01 - Elevation of levels of liver transaminase levels Category: Medical (3) Postprandial abdominal pain in right upper quadrant: Code(s): R10.11 - Right upper quadrant pain (4) Epigastric pain: Code(s): R10.13 - Epigastric pain (5) Constipation: Code(s): K59.00 - Constipation, unspecified (6) Abdominal bloating: Code(s): R14.0 - Abdominal distension (gaseous) (7) Halitosis: Code(s): R19.6 - Halitosis Plan Patient reports epigastric pain in her what she eats bad taste in her mouth. Will rule out celiac disease. Patient will try to follow low FODMAP diet which was discussed with her today. Avoid lactose and some of the gluten as she notice symptoms specially with lactose. Patient reports that she does not empty her bowels completely even though she thinks she goes to the bathroom almost every day. Will start her on senna. Increase fluid intake and activity to promote better bowel motility. Patient was encouraged to call the office where she was referred to a therapist. Encouragement and support given to patient. Long discussion with patient about how stress can increase her symptoms. Patient will follow-up in our office in 3 months, sooner on as needed basis. Patient is agreeable to this plan and verbalizes understanding of instructions. She was given the opportunity to ask questions and all questions answered. Thank you for allowing me to participate in her care Orders: Orders Transglutaminase IgA 10/15/24 R10.9 - Unspecified abdominal pain Medications: New sennosides (Natural Senna Laxative) 17.2 mg (2 x 8.6 mg) PO BEDTIME 60 tabs 3RF constipation K59.00 - Constipation, unspecified Coding Level of Care Code New Pt Level 4 (34348) Diagnoses Anxiety F41.9 Transaminitis R74.01 Postprandial abdominal pain in right upper quadrant R10.11 Epigastric pain R10.13 Constipation K59.00 Abdominal bloating R14.0 Halitosis R19.6 Time Spent (min) 45 Comment 35 minutes spent with patient and additional 10 minutes spent reviewing her records
== END 2024-10-15 12:52 | disposition home or self-care (01) ==
LOC: HO.HGI 11:44
PROVIDERS: PCP Internal Medicine; Visit Provider Nurse Practitioner Family
DX: F41.9 Anxiety disorder, unspecified (principal); R74.01 Elevation of levels of liver transaminase levels; R10.11 Right upper quadrant pain; R10.13 Epigastric pain; K59.00 Constipation, unspecified; R14.0 Abdominal distension (gaseous); R19.6 Halitosis
CPT/HCPCS: 99204

== ENCOUNTER 2024-10-17 08:44 | Outpatient (REF) | payer OTHER, SELFPAY ==
--- NOTE | ~2024-10-17 | US_ITS ---
EXAMINATION: US ABDOMEN COMPLETE WITH LIVER ELASTOGRAPHY HISTORY: R74.01 - Elevation of levels of liver transaminase levels TECHNIQUE: Real-time grayscale ultrasound imaging of the abdomen was performed and images were reviewed. COMPARISON: There are no prior studies for comparison. FINDINGS: Liver: The right lobe of the liver measures 12.3 cm in size. The left lobe of the liver measures 7.6 cm in size. The liver demonstrates normal homogeneous echotexture. No focal mass or intrahepatic biliary ductal dilatation is identified. There is normal hepatopedal flow in the portal vein. Ultrasound elastography of the liver was performed with 10 separate measurements of the liver parenchyma with the patient in the supine position. Measurements were obtained approximately 2 cm below Miguel's capsule and perpendicular to the capsule. Images are of satisfactory quality. The median shear wave velocity is 1.31 m/s. The interquartile range/median (IQR/median) is 0.11. Gallbladder and biliary tree: The gallbladder is unremarkable, without evidence of calculi, wall thickening, or pericholecystic fluid. There is no sonographic Chowdhury sign. The common bile duct is normal in caliber measuring 4 mm. Kidneys: The right kidney measures 9.9 cm in length. The left kidney measures 9.4 cm in length. The kidneys are unremarkable, without evidence of masses, hydronephrosis, or calculi. Pancreas: The pancreatic head, neck, and body are unremarkable. The pancreatic tail is obscured by bowel gas. Spleen: The spleen is normal in size and contour, measuring 9.1 cm in length. Abdominal aorta and inferior vena cava: The visualized portions of the abdominal aorta and inferior vena cava are normal in caliber. There is no free fluid in the abdomen. US/US abdomen comp w elastography IMPRESSION: Unremarkable abdominal ultrasound. The median shear wave velocity in the liver is 1.31 m/s, corresponding to a median liver stiffness of 5.13 kPa. The IQR/median value is 0.11. This is indicative of a quality data set. Findings are indicative of a low elastography value which rules out advanced chronic liver disease in asymptomatic patients. REFERENCE: Society of Radiologists in Ultrasound Liver Stiffness Thresholds (2020): LIVER STIFFNESS THRESHOLDS: *Shear wave velocity less than 1.3 m/s (Liver Stiffness equal or less than 5 kPa): High probability of being normal. *Shear wave velocity less than 1.7 m/s (Liver Stiffness less than 9 kPa): In the absence of other known clinical signs, rules out compensated advanced chronic liver disease. *Shear wave velocity between 1.7-2.1 m/s (Liver Stiffness 9-13 kPa): Suggestive of compensated advanced chronic liver disease but need further test for confirmation. *Shear wave velocity between 2.1-2.4 m/s (Liver Stiffness 13-17 kPa): Rules in compensated advanced chronic liver disease. *Shear wave velocity greater than 2.4 m/s (Liver Stiffness over 17 kPa): Suggestive of clinically significant portal hypertension. QUALITY OF DATA SET: *IQR/Median value equal or less than 0.15 implies a quality data set. *IQR/Median value over 0.15 implies a poor quality data set. SIGNIFICANT CHANGE FROM PRIOR EXAM: Significant change if liver stiffness measurement is 10% or greater from prior exam. OTHER CONSIDERATIONS: The stage of liver fibrosis may be overestimated in the setting of acute hepatitis, liver inflammation, elevated liver function tests, hepatic vascular congestion, obstructive cholestasis, non-fasting state, and infiltrative diseases such as amyloidosis and lymphoma. In some patients with NAFLD, the liver stiffness thresholds for compensated advanced chronic liver disease may be lower. In causes other than viral hepatitis and NAFLD, liver stiffness thresholds are not well established. Electronically signed by: Gold Sanchez MD 10/17/2024 09:22 AM EDT
== END 2024-10-17 08:45 | disposition home or self-care (01) ==
LOC: HO.US 08:44
PROVIDERS: PCP Internal Medicine; Visit Provider Internal Medicine
DX: R74.01 Elevation of levels of liver transaminase levels (principal)
CPT/HCPCS: 76700; 76981

== ENCOUNTER → 2024-10-17 08:44 | Outpatient (BNV) | payer OTHER, SELFPAY | PROVIDERS: PCP Internal Medicine; Visit Provider Radiology Diagnostic Radiology | DX: R74.01 Elevation of levels of liver transaminase levels (principal) | CPT/HCPCS: 76700; 76981 ==

== ENCOUNTER 2024-10-30 09:40 | Outpatient (AMB) | payer OTHER, SELFPAY ==
[2024-10-30 09:51] VITALS: BMI 23.0
--- NOTE | 2024-10-30 09:51 | A.OFFVIS_ITS ---
Vital Signs 10/30/24 09:51 Height 5 ft 4 in Weight 134 lb BMI 23.0 Intake Visit Reasons: Ultrasound follow up Bleach Analyst: Bleach Analyst Present ([place]) Accompanied by: Self / Same As Patient Allergies No Known Allergies Allergy (Verified 10/30/24 09:51) Is last menstrual period known: Yes HPI Comments Details: Patient is here today for a follow up pelvic ultrasound. She has a Mirena IUD in place since 2020 for contraception, has experienced irregular and heavy bleeding episodes. She reports her other symptoms she was feeling that she thought was pre menopausal was attributed her gluten diet. She was recently diagnosed with celiac and is feeling much better with gluten elimination. [facility] Medical History Fibroid Over weight Abnormal Pap smear of cervix IUD (intrauterine device) in place Heavy menses Surgical History No pertinent past surgical history Family History Mother Diabetes Father Parkinson disease Family/Other Substance use disorder Mental health disorder Maternal Grandfather Heart transplant status Social History Household Members: Family Housing: House Alcohol intake: former Patient Tobacco Use Status: Never used Tobacco e-Cigarette/Vaping Use: Never Used Second Hand Smoke Exposure: No service: No Current occupational status: employed 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 occupational exposures/hazards: No Cognitive needs: No Hearing needs: No Vision needs: Yes Review of Systems Const All systems reviewed & are unremarkable except as noted in HPI and below Endo Reports no additional complaints Physical Exam Vital Signs: BMI result Body Mass Index 23.0 Const General: cooperative, healthy appearing and no acute distress Psych Appearance: well kempt Attitude: cooperative Thought process: Normal thought process present Results Reviewed Results Reviewed: [address] [address] Ultrasound Report Signed Patient: Rosi Turner MR#: [id number] : 1980 Acct:[id number] Age/Sex: 44 / F ADM Date: 10/04/24 Loc: HO. Attending Dr: Annalise Paige CNM Ordering Physician: Annalise Paige CNM Date of Service: 10/04/24 Procedure(s): US pelvic and transvaginal Accession Number(s): [id number] cc: Annalise Paige CNM; Kilye Ramsey MD~ CLINICAL HISTORY: N92.0 - Excessive and frequent menstruation with regular cycle US pelvis transvaginal Comparison: None Findings: Transvaginal scanning performed. Anteverted uterus is 8.5 cm length. 1.1 cm fundal leiomyoma. Endometrium 8 mm thickness. an IUD is present. small endometrial cyst measuring 3 mm. Right ovary 2.9 x 1.9 x 2.3 cm. Left ovary 3.2 x 1.5 x 2.5 cm. Normal color Doppler of both ovaries. No free fluid. IMPRESSION: 1. IUD adequately positioned. 2. Small endometrial cyst. 3. Small fundal leiomyoma. This document has been electronically signed by: Stalin Damian MD on 10/05/2024 08:49:58 Dictated By: Stalin Damian MD Signed By: <Electronically signed by Stalin Damian MD in OV> 10/05/24 0850 DD/ 0849 TD/TT: 10/05/24 0849 Human Resources Talent Manager: Assessment & Plan Assessment & Plan (1) Fibroid: Code(s): D21.9 - Benign neoplasm of connective and other soft tissue, unspecified Category: Medical Plan: Counseled re: Leiomyoma: common pelvic neoplasm. Differential diagnosis-may include but not limited to- leiomyosarcoma which is a rare uterine sarcoma 3- 7/100,000, difficult to distinguish from fibroids on ultrasound from uterine sarcoma's. Unlikely any single test will have a highly positive predictive value. Hysterectomy is not recommended for sole purpose of excluding malignant neoplasm. Consult for surgical exploration, medical treatment, other treatments, verses expectant management, pros and cons, risks and benefits. Expectant management follow up in 6 months, then yearly for stability. Patient prefers to proceed with expectant management. Report any AUB, pelvic pressure, bloating, or pain. Referral to MD if indicated for level of care if indicated. (2) Abnormal finding on ultrasound: Code(s): R93.89 - Abnormal findings on diagnostic imaging of other specified body structures Plan: Discussed ultrasound findings: IMPRESSION: 1. IUD adequately positioned. 2. Small endometrial cyst. 3. Small fundal leiomyoma. (3) Abnormal uterine bleeding (AUB): Code(s): N93.9 - Abnormal uterine and vaginal bleeding, unspecified Plan: Counseled regarding hysteroscopy procedure, appointment to be made with Dr. Sullivan for consult. Plan Dietary changes. Monitoring bleeding pattern. The patient expressed understanding and agreement with the plan of care. All of her questions and concerns were addressed to the best of my ability. This note is constructed using voice recognition software. While every effort has been made to ensure accuracy, laminator preforms errors may have been included. Orders: Orders US pelvic and transvaginal 04/07/25 D21.9 - Benign neoplasm of connective and other soft tissue, unspecified Coding Level of Care Code Est Pt Level 3 (56056) Diagnoses Fibroid D21.9 Abnormal finding on ultrasound R93.89 Abnormal uterine bleeding (AUB) N93.9
== END 2024-10-30 11:09 | disposition home or self-care (01) ==
LOC: HO.HWS 09:40
PROVIDERS: PCP Internal Medicine; Visit Provider Advanced Practice Midwife
DX: D21.9 Benign neoplasm of connective and other soft tissue, unspecified (principal); R93.89 Abnormal findings on diagnostic imaging of other specified body structures; N93.9 Abnormal uterine and vaginal bleeding, unspecified
CPT/HCPCS: 99213

== ENCOUNTER → 2024-11-01 09:40 | Outpatient (BNVA) | payer OTHER, SELFPAY | PROVIDERS: PCP Internal Medicine; Visit Provider Internal Medicine ==

== ENCOUNTER 2024-11-13 10:30 | Outpatient (AMB) | payer OTHER, SELFPAY ==
[2024-11-13 10:37] VITALS: BP 98/78; PULSE 76; O2SAT 100; BMI 21.1
--- NOTE | 2024-11-13 10:37 | A.OFFVIS_ITS ---
Vital Signs 11/13/24 10:37 Height 5 ft 4 in Weight 123 lb BMI 21.1 BP 98/78 Blood Pressure Location Rt brachial Position Sitting Pulse 76 Pulse Source Pulse Oximeter Pulse Oximetry (%) 100 Oxygen Delivery Method Room Air Intake Visit Reasons: discuss egd colo and celiac Intake Note: ESTABLISHED PATIENT for mgmt dyspepsia. Labs done. Chief Complaint; Pt reports since making dietary and medication changes, she has noticed a significant positive change and is doing well since GUERRERO. No sx or concerns at this time. Animal Breeder Required: No Accompanied by: Self / Same As Patient Allergies hepatitis B virus vaccine Adverse Reaction (Unknown, Verified 11/13/24 10:51) Blurry Vision HPI HPI discuss egd colo and celiac: Details: LAST VISIT: Anxiety Transaminitis Postprandial abdominal pain in right upper quadrant Epigastric pain Constipation Abdominal bloating Halitosis Plan Patient reports epigastric pain in her what she eats bad taste in her mouth. Will rule out celiac disease. Patient will try to follow low FODMAP diet which was discussed with her today. Avoid lactose and some of the gluten as she notice symptoms specially with lactose. Patient reports that she does not empty her bowels completely even though she thinks she goes to the bathroom almost every day. Will start her on senna. Increase fluid intake and activity to promote better bowel motility. Patient was encouraged to call the office where she was referred to a therapist. Encouragement and support given to patient. Long discussion with patient about how stress can increase her symptoms. Patient will follow-up in our office in 3 months, sooner on as needed basis. Patient is agreeable to this plan and verbalizes understanding of instructions. She was given the opportunity to ask questions and all questions answered. ? Thank you for allowing me to participate in her care Orders Orders Transglutaminase IgA 10/15/24 R10.9 Medications New sennosides (Natural Senna Laxative) 17.2 mg (2 x 8.6 mg) PO BEDTIME 60 tabs 3RF constipation K59.00 TODAY'S VISIT Patient is here today for follow-up. Diagnosed with celiac after last visit. Patient has been following following gluten free diet and has been doing well. Patient is surprised how her symptoms went away. Patient reports that she has never felt better. Patient reports that mentally and emotionally she is feeling well. Less stressed out. Patient denies any GI concerning symptoms today. Takes senna every evening and she is able to move her bowels well. Patient however wants to know what she can eat in order to gain weight. [facility] Medical History (Updated 11/13/24 @ 11:24 by Hollie Keller 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 Current occupational exposures/hazards: No Cognitive needs: No Hearing needs: No Vision needs: Yes Review of Systems Const Denies weight gain and Denies weight loss ENT Reports no additional complaints, Denies dysphagia and Denies odynophagia Card Reports no additional complaints Resp Reports no additional complaints GI Denies abdominal pain, Denies belching, Denies melena, Denies bloating, Denies change in bowel habits, Denies dysphagia, Denies excessive flatus, Denies dyspepsia, Denies heartburn, Denies diarrhea, Denies loose stools, Denies nausea, Denies odynophagia and Denies vomiting Musc Reports no additional complaints Neuro Reports no additional complaints Psych Reports no additional complaints Endo Reports no additional complaints Physical Exam Vital Signs: Last Vital Signs Pulse 76 11/13/24 10:37 BP 98/78 11/13/24 10:37 Pulse Ox 100 11/13/24 10:37 Oxygen Delivery Method Room Air 11/13/24 10:37 BMI result Body Mass Index 21.1 Const General: healthy appearing, no acute distress and well developed Nutritional Appearance: well nourished Orientation/consciousness: patient oriented x3 Cardio Rate: regular rate GI Inspection: Yes normal to inspection and No distended Palpation (GI): Soft to palpation, not firm, nontender and No hepatosplenomegaly present Auscultation: normal bowel sounds General: Yes no CVA tenderness Back/Spine/Pelvis Back: no CVA tenderness Skin General skin exam: elasticity normal, turgor normal and dry skin Neuro General: patient oriented x3 Psych Appearance: grossly normal Mental Status: mental status grossly normal Affect: Anxious affect present Insight: Good insight present (Psych) Results Reviewed Results Reviewed: Laboratory Tests 10/15/24 13:05 Tiss Transglutamin IgA 92.6 H Assessment & Plan Assessment & Plan (1) Celiac disease: Code(s): K90.0 - Celiac disease Category: Medical (2) Constipation: Code(s): K59.00 - Constipation, unspecified Qualifiers: Constipation type: slow transit constipation Qualified Code(s): K59.01 - Slow transit constipation (3) Postprandial abdominal pain in right upper quadrant: Code(s): R10.11 - Right upper quadrant pain (4) Epigastric pain: Code(s): R10.13 - Epigastric pain (5) Abdominal bloating: Code(s): R14.0 - Abdominal distension (gaseous) (6) Halitosis: Code(s): R19.6 - Halitosis Plan Continue gluten free diet. Patient downloaded gluten free scanner on for phone so she can scan anything that she is purchasing to make sure that it is gluten free. Patient would like to hold off going for colonoscopy and endoscopy right now. Continue senna daily. Increase fluid intake and activity to promote better bowel motility. Patient will try protein protein shake couple times a day. Follow-up in 6 months, sooner on as needed basis. She is agreeable to this plan and verbalizes understanding of instructions. She was given the opportunity to ask questions and all questions answered Thank you for allowing me to participate in her care Coding Level of Care Code Est Pt Level 4 (47738) Complex EM visit Add On G2211 Diagnoses Celiac disease K90.0 Slow transit constipation K59.01 Constipation type: slow transit constipation Postprandial abdominal pain in right upper quadrant R10.11 Epigastric pain R10.13 Abdominal bloating R14.0 Halitosis R19.6 Time Spent (min) 35 Comment 25 minutes spent with patient and additional 10 minutes spent reviewing her records
== END 2024-11-13 11:12 | disposition home or self-care (01) ==
LOC: HO.HGI 10:31
PROVIDERS: PCP Internal Medicine; Visit Provider Nurse Practitioner Family
DX: K90.0 Celiac disease (principal); R14.0 Abdominal distension (gaseous); R19.6 Halitosis
CPT/HCPCS: 99214

== ENCOUNTER → 2024-11-13 10:30 | Outpatient (BNVA) | payer OTHER, SELFPAY | PROVIDERS: PCP Internal Medicine; Visit Provider Nurse Practitioner Family ==

== ENCOUNTER 2024-11-19 10:45 | Outpatient (AMB) | payer OTHER, SELFPAY ==
[2024-11-19 10:52] VITALS: BP 110/70; BMI 21.1
--- NOTE | 2024-11-19 10:52 | MHC.OFFVIS ---
Vital Signs 11/19/24 10:52 Height 5 ft 4 in Weight 123 lb BMI 21.1 BP 110/70 Intake Visit Reasons: Hysteroscopy consult Offshore Wind Turbine Technician: Offshore Wind Turbine Technician Present Accompanied by: Self / Same As Patient Allergies hepatitis B virus vaccine Adverse Reaction (Unknown, Verified 11/19/24 10:52) Blurry Vision Is last menstrual period known: Yes Last menstrual period: 05/21/20 Post menopausal: No Patient : No Do you need a note to return to daycare/school/sports/work: Yes (for surgery on monday) HPI Comments Details: H&H 13.4/40.1 TSH within normal GC/CT negative Co testing done recently was negative/HPV high-risk positive, HPV 16/18 negative, previous co testing was negative in 202210/05/2024 pelvic ultrasound showed the following: Transvaginal scanning performed. Anteverted uterus is 8.5 cm length. 1.1 cm fundal leiomyoma. Endometrium 8 mm thickness. an IUD is present. small endometrial cyst measuring 3 mm. Right ovary 2.9 x 1.9 x 2.3 cm. Left ovary 3.2 x 1.5 x 2.5 cm. Normal color Doppler of both ovaries. No free fluid. IMPRESSION: 1. IUD adequately positioned. 2. Small endometrial cyst. 3. Small fundal leiomyoma. [facility] Medical History (Updated 11/19/24 @ 11:24 by Gaston Sullivan MD) Celiac disease Fibroid Over weight Abnormal Pap smear of cervix IUD (intrauterine device) in place Heavy menses Surgical History No pertinent past surgical history Family History Mother Diabetes Father Parkinson disease Family/Other Substance use disorder Mental health disorder Maternal Grandfather Heart transplant status Social History Household Members: Family Housing: House Alcohol intake: former Patient Tobacco Use Status: Never used Tobacco e-Cigarette/Vaping Use: Never Used Second Hand Smoke Exposure: No service: No 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 occupational status: employed 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 Current occupational exposures/hazards: No Cognitive needs: No Hearing needs: No Vision needs: Yes Female Reproductive History Menstrual Date of last menstrual period: 05/21/20 Total pregnancies: 2 Full term: 2 Review of Systems Card Reports as per HPI and Reports no additional complaints Resp Reports as per HPI and Reports no additional complaints GI Reports as per HPI and Reports no additional complaints Reports as per HPI Physical Exam Vital Signs: Last Vital Signs BP 110/70 11/19/24 10:52 BMI result Body Mass Index 21.1 Const General: cooperative, healthy appearing and comfortable Resp Effort & Inspection: normal respiratory effort Auscultation: clear to auscultation bilaterally Percussion: percussion normal Cardio Palpation: normal PMI Rate: regular rate Rhythm: regular rhythm Heart sounds: no murmurs and no rubs Peripheral pulses: Peripheral pulses 2+ throughout GI Inspection: Yes normal to inspection Palpation (GI): Soft to palpation, nontender, no guarding, not rigid and No hepatosplenomegaly present Percussion: Yes normal to percussion Auscultation: normal bowel sounds Rectal Exam - Female: deferred Assessment & Plan Assessment & Plan (1) Abnormal uterine bleeding (AUB): Comment: with Mirena IUD Endometrial cyst by ultrasound Code(s): N93.9 - Abnormal uterine and vaginal bleeding, unspecified Category: Medical Plan: Recommended IUD removal with hysteroscopy D&C possible polypectomy/myomectomy, the patient does not want Mirena IUD reinsertion. Discussed with the patient the procedure , all benefits and risks including but not limited to inability to complete the procedure , insufficient endometrial tissue for a complete evaluation of the endometrial cavity , bleeding, infection, possible need for blood transfusion with all its risk ( HIV,syphilis, Hepatitis, anaphylaxis shock, others..), injury to bladder, rectum, possible need for laparoscopy/laparotomy or hysterectomy. The patient verbalized understanding and signed the consent. Instructions given the patient to stay NPO after midnight the day prior to the procedure and to take only the specific medication (s) discussed the morning of the surgical procedure and to schedule a 2 week postoperative appointment (2) Uterine myoma: Code(s): D25.9 - Leiomyoma of uterus, unspecified Category: Medical Plan: Discussed with the patient the findings on pelvic ultrasound & the risk of myosarcoma; in addition reviewed with the patient that malignancy and pre malignancy cannot be ruled out without hysterectomy for pathological evaluation ; furthermore, explained to the patient the limitation of pelvic ultrasound and endometrial biopsy in the setting. Discussed with the patient the options of treatment including expectant management versus hysterectomy; the pros and cons, risks benefits of each approach were discussed with the patient including the fact that in cases of myosarcoma, surgical treatment can lead to early diagnosis and positively affects the prognosis; after further discussion, the patient decided to proceed with expectant management. Will repeat pelvic ultrasound periodically. Instructions given to patient to call in case any of the following occurs: pressure symptoms, abnormal uterine bleeding, pelvic pain; and to schedule a six-months pelvic ultrasound (order placed by Annalise Paige CNM) and a follow-up appointment scheduled. All questions answered, the patient verbalized understanding and agreed with the plan . (3) Cervical high risk HPV (human papillomavirus) test positive: Code(s): R87.810 - Cervical high risk human papillomavirus (HPV) DNA test positive Category: Medical Plan: Discussed with the patient the ASCCP guidelines, recommend co testing in 1 year, appointment scheduled with Annalise Paige CNM Coding Level of Care Code Est Pt Level 3 (40895) Diagnoses Abnormal uterine bleeding (AUB) N93.9 Uterine myoma D25.9 Cervical high risk HPV (human papillomavirus) test positive R87.810
== END 2024-11-19 11:36 | disposition home or self-care (01) ==
LOC: HO.HWS 10:45
PROVIDERS: PCP Internal Medicine; Visit Provider Obstetrics & Gynecology
DX: N93.9 Abnormal uterine and vaginal bleeding, unspecified (principal); D25.9 Leiomyoma of uterus, unspecified; R87.810 Cervical high risk human papillomavirus (HPV) DNA test positive
CPT/HCPCS: 99213

== ENCOUNTER 2024-11-22 10:24 | Outpatient (AMB) | payer OTHER, SELFPAY ==
--- NOTE | 2024-11-22 10:30 | A.OFFVIS_ITS ---
Vital Signs 11/22/24 10:31 Height 5 ft 4 in Weight 121 lb 4.068 oz BMI 20.8 Intake Visit Reasons: Pt req appt. 30 m. Persistent/worsening sx Intake Note: ESTABLISHED PATIENT for mgmt of dyspepsia, fecal abn. Chief Complaint; BRB per rectum, rectal inflammation + discomfort, bloating. Pt also has questions regarding medications and any possible interactions. 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 30 m. Persistent/worsening sx: Details: LAST VISIT: Celiac disease Constipation Postprandial abdominal pain in right upper quadrant Epigastric pain Abdominal bloating Halitosis Plan Continue gluten free diet. Patient downloaded gluten free scanner on for phone so she can scan anything that she is purchasing to make sure that it is gluten free. Patient would like to hold off going for colonoscopy and endoscopy right now. Continue senna daily. Increase fluid intake and activity to promote better bowel motility. Patient will try protein protein shake couple times a day. Follow-up in 6 months, sooner on as needed basis. She is agreeable to this plan and verbalizes understanding of instructions. She was given the opportunity to ask questions and all questions answered TODAY'S VISIT Patient is here today for requested visit. Patient reports that she has been continuing with blood after bowel movement. Patient reports taking 1 senna daily and having trouble moving her bowels. Patient denies melena. Reports that she is continuously losing weight. Reports that she is trying to eat protein. Just recently about a year ago stopped eating chicken in his trying to reintroduce it again. Patient purchased protein powder and she will try to use that. Patient reports occasional rectal bleed. Patient did notice that she has external hemorrhoids. Patient is trying as best as she can to follow gluten free diet. Patient reports that she feels horrible when she does eat gluten. She experiences multiple various symptoms and would like to stay gluten free even before going for endoscopy. [facility] Medical History Celiac disease Fibroid Over weight Abnormal Pap smear of cervix IUD (intrauterine device) in place Heavy menses Surgical History No pertinent past surgical history Family History Mother Diabetes Father Parkinson disease Family/Other Substance use disorder Mental health disorder Maternal Grandfather Heart transplant status Social History Household Members: Family Housing: House Alcohol intake: former Patient Tobacco Use Status: Never used Tobacco e-Cigarette/Vaping Use: Never Used Second Hand Smoke Exposure: No service: No Current occupational status: employed 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 Current occupational exposures/hazards: No Cognitive needs: No Hearing needs: No Vision needs: Yes Review of Systems Const Denies weight gain and Denies weight loss ENT Reports no additional complaints, Denies dysphagia and Denies odynophagia Card Reports no additional complaints Resp Reports no additional complaints GI Denies abdominal pain, Denies belching, Denies melena, Reports bloating, Reports hematochezia, Denies change in bowel habits, Reports constipation, Denies dysphagia, Denies excessive flatus, Denies dyspepsia, Reports heartburn (O ccasional), Denies diarrhea, Denies loose stools, Denies nausea, Denies odynophagia and Denies vomiting Reports no additional complaints Musc Reports no additional complaints Neuro Reports no additional complaints Psych Reports no additional complaints Endo Reports no additional complaints Physical Exam Vital Signs: BMI result Body Mass Index 20.8 Const General: healthy appearing, no acute distress and well developed Nutritional Appearance: well nourished Orientation/consciousness: patient oriented x3 Cardio Rate: regular rate GI Inspection: Yes normal to inspection and No distended Palpation (GI): Soft to palpation, not firm, nontender and No hepatosplenomegaly present Auscultation: normal bowel sounds General: Yes no CVA tenderness Back/Spine/Pelvis Back: no CVA tenderness Skin General skin exam: elasticity normal, turgor normal and dry skin Neuro General: patient oriented x3 Psych Appearance: grossly normal Mental Status: mental status grossly normal Affect: Anxious affect present Insight: Good insight present (Psych) Assessment & Plan Assessment & Plan (1) Celiac disease: Code(s): K90.0 - Celiac disease Category: Medical (2) Constipation: Code(s): K59.00 - Constipation, unspecified Qualifiers: Constipation type: slow transit constipation Qualified Code(s): K59.01 - Slow transit constipation (3) Postprandial abdominal pain in right upper quadrant: Code(s): R10.11 - Right upper quadrant pain (4) Epigastric pain: Code(s): R10.13 - Epigastric pain (5) Abdominal bloating: Code(s): R14.0 - Abdominal distension (gaseous) (6) Halitosis: Code(s): R19.6 - Halitosis (7) Rectal bleed: Code(s): K62.5 - Hemorrhage of anus and rectum Plan Patient is requesting referral to dietitian. Still losing weight. Discussed wi th her the importance of eating often more protein. Patient will try. Acid reflux, epigastric pain is more or less under control with diet. Patient is compliant with gluten free diet. Reports still constipation. She will go back to taking her 1 senna 1 day and then to send us the following day. Occasional blood in her stool patient will be sent for colonoscopy. What to expect before during and after procedure discussed with patient. Stressed the importance of clear liquid diet day before procedure. I will see her after the procedure, sooner on as needed basis. Patient is agreeable to this plan and verbalizes understanding of instructions. She was given the opportunity to ask questions and all questions answered. Thank you for allowing me to participate in her care Orders: Referrals Therapist'S Assistant Nutrition Referral R63.4 - Abnormal weight loss Medications: New hydrocortisone 2.5% (Proctosol HC) 1 appl [place] BID-QID PRN 30 grams 2RF hemorrhoids K64.9 - Unspecified hemorrhoids bisacodyl (Dulcolax (bisacodyl)) take 4 tabs at noon the day before your colonoscopy 20 mg (4 x 5 mg) PO ONCE 4 tabs 0RF 1 day Z12.11 - Encounter for screening for malignant neoplasm of colon polyethylene glycol 3350 (Miralax) As directed by gastroenterology department at [facility] 238 grams PO ONCE 238 grams 0RF Z12.11 - Encounter for screening for malignant neoplasm of colon Coding Level of Care Code Est Pt Level 4 (51472) Complex EM visit Add On G2211 Diagnoses Celiac disease K90.0 Slow transit constipation K59.01 Constipation type: slow transit constipation Postprandial abdominal pain in right upper quadrant R10.11 Epigastric pain R10.13 Abdominal bloating R14.0 Halitosis R19.6 Rectal bleed K62.5 Time Spent (min) 40 Comment 30 minutes spent with patient and additional 10 minutes spent reviewing her records
[2024-11-22 10:31] VITALS: BMI 20.8
== END 2024-11-22 11:08 | disposition home or self-care (01) ==
LOC: HO.HGI 10:24
PROVIDERS: PCP Internal Medicine; Visit Provider Nurse Practitioner Family
DX: K90.0 Celiac disease (principal); R14.0 Abdominal distension (gaseous); R19.6 Halitosis; K62.5 Hemorrhage of anus and rectum
CPT/HCPCS: 99214

== ENCOUNTER 2024-11-29 08:39 | Day surgery (SDC) | payer OTHER, SELFPAY ==
[2024-11-27 07:44] VITALS: BMI 21.1
[2024-11-29 08:48] VITALS: BP 122/78; PULSE 83; RESP 18; TEMP 36.1; O2SAT 97; BMI 20.5
[2024-11-29 08:59] LABS: UPreg QC Valid YES; Urine Pregnancy NEGATIVE (NEGATIVE)
[2024-11-29] MEDS: Lactated Ringers 1,000 ML 100 ML IVCONT (09:11)
--- NOTE | 2024-11-29 09:20 | P.CONAN_ITS ---
Documented by User: Tarsha Solis NP 11/27/24 12:59 HPI - Anesthesia Eval Consult details Narrative: 44yo F for D&C Hysteroscopy, possible myomectomy / polypectomy, IUD removal PMFSH Active Problems Active Problems: All Active Problems Cervical high risk HPV (human papillomavirus) test positive (Acute) Uterine myoma (Acute) Abnormal uterine bleeding (AUB) (Acute) Anxiety (Acute) Transaminitis (Acute) Encounter for well woman exam with routine gynecological exam (Acute) Abnormal gamma globulin level (Acute) Physical exam (Acute) Lumbar pain (Acute) Elevated total protein (Acute) Keratoconus of both eyes (Acute) Screening for cervical cancer (Acute) Hypothyroidism (Acute) Other specified hypothyroidism (Acute) Celiac disease (Acute) Fibroid (Acute) Heavy menses (Acute) Past Medical History Medical History (Updated 11/27/24 @ 07:46 by Adriana Velarde RN) Elevated cholesterol Pre-diabetes Thyroid disease Celiac disease Fibroid Abnormal Pap smear of cervix IUD (intrauterine device) in place Heavy menses Over weight Family History Family History Mother Diabetes Father Parkinson disease Family/Other Substance use disorder Mental health disorder Maternal Grandfather Heart transplant status Surgical History Surgical History No pertinent past surgical history Social History Social History Household Members: Family Housing: House Alcohol intake: former Patient Tobacco Use Status: Never used Tobacco e-Cigarette/Vaping Use: Never Used Second Hand Smoke Exposure: No Have you been hit, kicked, punched, or otherwise hurt by someone within the past year? 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 occupational exposures/hazards: No Cognitive needs: No Hearing needs: No Vision needs: Yes Meds Allergies Allergy/AdvReac Type Severity Reaction Status Date / Time hepatitis B virus vaccine AdvReac Unknown Blurry Verified 11/22/24 10:30 Vision Home Medications ?Medication ?Instructions ?Recorded ?Confirmed ?Last Taken ?Type biotin 1 mg capsule 1 mg PO DAILY 09/04/24 10/15/24 Unknown History cholecalciferol (vitamin D3) 50 50 mcg PO DAILY 09/04/24 10/15/24 Unknown History mcg (2,000 unit) capsule lactobacillus combination no.4 3 3,000 mmu cells PO DAILY 09/04/24 10/15/24 Unknown History billion cell capsule (Probiotic) omega-3 fatty acids 500 mg PO DAILY 10/15/24 10/15/24 Unknown History Exam Height,Weight and Vital Signs: Height 5 ft 4 in Weight 55.792 kg Assessment and Plan Assessment Anesthesia Assessment: Chart Reviewed Documented by User: Celi Tucker DO 11/29/24 09:23 [facility] Past Medical History Medical History (Updated 11/27/24 @ 07:46 by Adriana Velarde RN) Elevated cholesterol Pre-diabetes Thyroid disease Celiac disease Fibroid Abnormal Pap smear of cervix IUD (intrauterine device) in place Heavy menses Over weight Family History Family History Mother Diabetes Father Parkinson disease Family/Other Substance use disorder Mental health disorder Maternal Grandfather Heart transplant status Family history of problems with anesthesia: No Surgical History Surgical History No pertinent past surgical history History of Problems with Anesthesia: No Social History Social History Household Members: Family Housing: House Alcohol intake: former Patient Tobacco Use Status: Never used Tobacco e-Cigarette/Vaping Use: Never Used Second Hand Smoke Exposure: No Have you been hit, kicked, punched, or otherwise hurt by someone within the past year? 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 occupational exposures/hazards: No Cognitive needs: No Hearing needs: No Vision needs: Yes Meds Allergies Allergy/AdvReac Type Severity Reaction Status Date / Time hepatitis B virus vaccine AdvReac Unknown Blurry Verified 11/22/24 10:30 Vision Home Medications ?Medication ?Instructions ?Recorded ?Confirmed ?Last Taken ?Type biotin 1 mg capsule 1 mg PO DAILY 09/04/24 10/15/24 Unknown History cholecalciferol (vitamin D3) 50 50 mcg PO DAILY 09/04/24 10/15/24 Unknown History mcg (2,000 unit) capsule lactobacillus combination no.4 3 3,000 mmu cells PO DAILY 09/04/24 10/15/24 Unknown History billion cell capsule (Probiotic) omega-3 fatty acids 500 mg PO DAILY 10/15/24 10/15/24 Unknown History Exam Exam Date and Time: 11/29/24 0920 Height,Weight and Vital Signs: Height 5 ft 4 in Weight 55.792 kg Vital Signs Temperature 97 F 11/29/24 08:48 Pulse Rate 83 11/29/24 08:48 Respiratory Rate 18 11/29/24 08:48 Blood Pressure 122/78 11/29/24 08:48 Pulse Oximetry 97 11/29/24 08:48 Oxygen Delivery Method Room Air 11/29/24 08:48 Temperature 97 F 11/29/24 08:48 Pulse Rate 83 11/29/24 08:48 Respiratory Rate 18 11/29/24 08:48 Blood Pressure 122/78 11/29/24 08:48 Pulse Oximetry 97 11/29/24 08:48 Oxygen Delivery Method Room Air 11/29/24 08:48 Airway Mallampati Class: II TM Dist: >3cm Neck ROM: Full Loose/Missing/Broken Teeth: Yes (poor dentition lower jaw and several missing molars top jaw) Heart: S1S2 Lungs: CTAB Assessment and Plan Assessment Anesthesia Assessment: Anesthesia Plan Discussed and Chart Reviewed Final Anesthetic Review Family History of Problems with Anesthesia: No History of Problems with Anesthesia: No NPO: Yes ASA Class: II Final Preanesthetic Review: No Changes in Pt Med Stat, Meds/Allgs Chart Reviewed, Consent Obtained/Reviewed and Anes Risks/Benef Reviewed Patient Risk: Low Procedure Risk: Low Anesthetic Plan Anesthetic Plan: GA and Agree w/ Assess. and Plan Disposition: Standard PACU
--- NOTE | 2024-11-29 09:32 | MHC.SHP ---
Pre-Procedural Eval Section A - 24 Hr Update-Section A only Date of Service: 11/29/24 The patient is an INPATIENT: No Changes since office visit: No Cold of Flu in the past 2 weeks, No New Medical Problems, No Changes in Medication and No Patient answered all questions The patient has been examined within 24 hours of the surgical procedure. The History & Physical has been completed within 30 days and I have reviewed it.: Yes Section B - Complete if H&P > 30 days Chief Complaint: Abnormal uterine and vaginal bleeding, unspecified Allergies: Allergies Allergy/AdvReac Type Severity Reaction Status Date / Time hepatitis B virus vaccine AdvReac Unknown Blurry Verified 11/22/24 10:30 Vision Plan Diagnosis/Plan: Unchanged I have reviewed the history and physical and performed a pertinent physical examination on my patient. No changes have occurred unless specified. Time Spent With Patient Time: Total time managing care of this patient today ____ minutes.
--- NOTE | 2024-11-29 10:12 | P.OP_ITS ---
Operative Note Operative Note Date of Service: 11/29/24 Narrative: Preop Diagnosis: Abnormal uterine bleeding , endometrial cyst by ultrasound, Mirena IUD in utero Operation: Diagnostic Hysteroscopy, Dilataion & Curettage , Mirena IUD removal Post Op Diagnosis: Normal endometrial and endocervical cavity, no evidence of pathology QBL: Minimal Anesthesia: GLMA Surgeon: Gaston Sullivan MD Polisher Brass: None Complication: None Pathology: Endometrial Scrapings Procedure: The patient was put in the dorsal lithotomy position, scrubbed, and draped in the usual manner. A sterile speculum was inserted in the patient's vagina. The anterior lip of the cervix was grasped with a single tooth carlitos culum. A Lynette clamp was used to grasp the IUD string of IUD was taken out without complication. The cervix was then dilated up to 5 mm, then the scope was inserted in the patient's uterus. Inspection revealed normal endocervical & endometrial cavity with no evidence of pathology. The scope was taken out of the uterine cavity , then sharp curetting was carried on with no complications. At the end of the procedure, all instruments were taken out of the patient uterine and vaginal cavity. The single tooth tenaculum was removed and homeostasis was assured using pressure. The patient tolerated the procedure well and was transferred to the PACU in a stable condition.
--- NOTE | 2024-11-29 10:12 | PM.OP ---
Brief Operative Note Date of Service: 11/29/24 Pre-op diagnosis: Abnormal uterine bleeding, endometrial cyst by ultrasound, IUD in uterine Post-op diagnosis: same (Normal endometrial cavity) Procedure: Hysteroscopy D&C, Mirena IUD removal Surgeon: Gaston Sullivan MD Anesthesia: GLMA Was an Elementary Secretary used for this Procedure?: No Estimated blood loss (mL): 0 Pathology: other (Endometrial Scrapping. ) Condition: stable Disposition: PACU
[2024-11-29 10:18] VITALS: BP 83/45; PULSE 106; RESP 16; TEMP 36.5; O2SAT 100
[2024-11-29 10:23] VITALS: BP 94/54; PULSE 103; RESP 16; O2SAT 99
[2024-11-29 10:28] VITALS: BP 102/48; PULSE 87; RESP 16; O2SAT 100
[2024-11-29 10:33] VITALS: BP 94/55; PULSE 74; RESP 16; O2SAT 99
[2024-11-29 10:48] VITALS: BP 94/55; PULSE 75; RESP 16; TEMP 36.3; O2SAT 100
== END 2024-11-29 11:58 | disposition home or self-care (01) ==
PROVIDERS: PCP Internal Medicine; Visit Provider Obstetrics & Gynecology
PROC: 0UDB8ZZ Extraction of Endometrium, Via Natural or Artificial Opening Endoscopic (ICD-10-PCS; CPT 58558; principal; 2024-11-29 10:50)
DX: N93.9 Abnormal uterine and vaginal bleeding, unspecified (principal); N71.1 Chronic inflammatory disease of uterus; Z30.432 Encounter for removal of intrauterine contraceptive device; N92.0 Excessive and frequent menstruation with regular cycle; D25.9 Leiomyoma of uterus, unspecified; K90.0 Celiac disease; K86.81 Exocrine pancreatic insufficiency; R87.810 Cervical high risk human papillomavirus (HPV) DNA test positive; E78.00 Pure hypercholesterolemia, unspecified; R73.03 Prediabetes; E03.9 Hypothyroidism, unspecified; Z88.7 Allergy status to serum and vaccine; Z79.899 Other long term (current) drug therapy
CPT/HCPCS: 58558; 81025; 88305; J0131; J1100; J1885; J2003; J2405; J2704; J3010

== ENCOUNTER → 2024-11-29 08:39 | Outpatient (BNV) | payer OTHER, SELFPAY | PROVIDERS: PCP Internal Medicine; Visit Provider Obstetrics & Gynecology | DX: N93.9 Abnormal uterine and vaginal bleeding, unspecified (principal); Z30.432 Encounter for removal of intrauterine contraceptive device | CPT/HCPCS: 58301; 58558 ==

== ENCOUNTER 2024-12-02 08:11 | Outpatient (AMB) | payer OTHER, SELFPAY ==
--- NOTE | 2024-12-02 08:16 | MHC.PC.OV ---
Vital Signs 12/02/24 08:17 Height 5 ft 4 in Weight 123 lb BMI 21.1 BP 112/76 Blood Pressure Location Lt brachial Position Sitting Intake Visit Reasons: thyroid Intake Note: Patient here for a follow up Thyroid Premises Technician Required: No Accompanied by: Self / Same As Patient Allergies hepatitis B virus vaccine Adverse Reaction (Unknown, Verified 12/02/24 08:37) Blurry Vision Medication List - Last Reconciled 12/02/24 by Kiley House MD biotin 1 mg PO DAILY cholecalciferol (vitamin D3) 50 mcg PO DAILY hydrocortisone 2.5% (Proctosol HC) 1 appl [place] BID-QID PRN levothyroxine 88 mcg PO ONCE 90 days omega-3 fatty acids 500 mg PO DAILY sennosides (Natural Senna Laxative) 17.2 mg (2 x 8.6 mg) PO BEDTIME Tobacco use date assessed: 12/02/24 Dental Screening Dental Screen Date: 12/02/24 Did you have a dental visit in the last 12 months?: Yes Did you have a dental problem in the last 6 months where you did not have access to dental care?: No Was dental information given to patient?: Patient has dentist HPI HPI Comments History of Present Illness Details The patient is a 44-year-old female presenting with weight loss concerns. She has celiac disease, managed with a strict gluten-free diet, following a depression episode that resolved post-diagnosis. Over the last months, she experienced a weight drop from 153 lb to 120 lb, now stabilizing. Current symptoms include constipation managed with Senna. Her diet focuses on fruits, rice, shrimp, and fish, with decreased meat consumption due to reduced appetite. Her biochemical markers, such as hemoglobin and vitamin levels, are stable, although mild liver enzyme elevation persists. A positive HPV Pap smear requires follow-up, currently awaiting biopsy results. Concerns revolve around dietary sufficiencies due to celiac disease. Past hematology follow-up for elevated total protein was concluded as non-significant. She also has hypothyroidism by last TSH was normal. [facility] Medical History (Updated 12/02/24 @ 10:25 by Kiley House MD) Elevated cholesterol Pre-diabetes Thyroid disease Celiac disease Fibroid Abnormal Pap smear of cervix IUD (intrauterine device) in place Heavy menses Over weight Surgical History No pertinent past surgical history Family History Mother Diabetes Father Parkinson disease Family/Other Substance use disorder Mental health disorder Maternal Grandfather Heart transplant status Social History Household Members: Family Housing: House Alcohol intake: former Patient Tobacco Use Status: Never used Tobacco e-Cigarette/Vaping Use: Never Used Second Hand Smoke Exposure: No service: No Current occupational status: employed Current occupation: [employer] Current occupational exposures/hazards: No Cognitive needs: No Hearing needs: No Vision needs: Yes Questionnaire PHQ-9 Over the last 2 weeks, how often have you been bothered by any of the following problems? 1. Little interest or pleasure in doing things: nearly every day 2. Feeling down, depressed, or hopeless: not at all 3. Trouble falling or staying asleep, or sleeping too much: several days 4. Feeling tired or having little energy: not at all 5. Poor appetite or overeating: several days 6. Feeling bad about yourself - or that you are a failure or have let yourself or your family down: not at all 7. Trouble concentrating on things, such as reading the newspaper or watching television: several days 8. Moving or speaking so slowly that other people could have noticed. Or the opposite - being so fidgety or restless that you have been moving around a lot more than usual: not at all 9. Thoughts that you would be better off or of hurting yourself in some way: not at all Total score: 6 Depression Screening Interpretation: Positive Depression Screening Follow-up: Existing condition and Follow-up Visit Requested Depression Screening Done: Yes 92705 - PHQ-9 Billing: Yes Source: Developed by Drs. Gold Jimenez, Sima Villalobos, Alexis Madrid and colleagues, with an educational garrett from [employer]. Thrive Questionnaire Date Thrive assessed: 12/02/24 I am a: Patient What is your living situation today?: I have a steady place to live Within the past 12 months, did the food you bought not last and you didn't have the money to get more?: Never true Within the past 12 months, did you worry whether your food would run out before you got money to buy more?: Never true Do you have trouble paying for medicines?: No Do you have trouble getting transportation to medical appointments?: No Do you have trouble paying your heating and electricity bill?: No Do you have trouble taking care of your child, family member or friend?: No Do you have trouble with day-to-day activities such as bathing, preparing meals, shopping, managing finances, etc.?: No Are you currently unemployed and looking for a job?: No Are you interested in more education?: No Please select the resources that you would like help with: None Currently or been in a relationship where the following occur: No concerns reported THRIVE Score: 0 AUDIT C Alcohol Use Questionnaire (AUDIT-C) 1. How often do you have a drink containing alcohol?: Never Total Score: 0 Score Reviewed/Action Taken: No NGHIA-7 AMB Questionnaire NGHIA-7 Date NGHIA - 7 assessed: 12/02/24 Feeling nervous, anxious, or on edge: 0 = Not at all Not being able to stop or control worryin = Not at all Worrying too much about different things: 1 = Several days Trouble relaxin = Several days Being so restless that it is hard to sit still: 0 = Not at all Becoming easily annoyed or irritable: 0 = Not at all Feeling afraid as if something awful might happen: 0 = Not at all Total NGHIA-7 score (0-4 normal; 5-9 mild; 10-14 moderate; 15-21 severe): 2 Source: Developed by Drs. Gold Jimenez, Sima Villalobos, Alexis Madrid and colleagues, with an educational garrett from [employer]. NGHIA-7 Assessment Billing NGHIA-7 Assessment Tool: NGHIA-7 Assessment 01387 Review of Systems Const All systems reviewed & are unremarkable except as noted in HPI and below Card Denies chest pain at rest, Denies chest pain with activity, Denies edema, Denies irregular heart rhythm, Denies claudication, Denies dyspnea, Denies dyspnea on exertion, Denies orthopnea, Denies paroxysmal nocturnal dyspnea and Denies slow heart rate Resp Denies cough, Denies dyspnea and Denies dyspnea on exertion GI Denies abdominal pain, Denies change in bowel habits, Denies excessive flatus, Denies nausea and Denies vomiting Physical exam (Primary Care) Vital Signs: Last Vital Signs BP 112/76 12/02/24 08:17 BMI result Body Mass Index 21.1 Tobacco/Smoking Status: Tobacco use Status Tobacco use date assessed 12/02/24 12/02/24 08:23 Patient Tobacco Use Status Never used Tobacco 12/02/24 08:23 e-Cigarette/Vaping Use Never Used 12/02/24 08:23 PHQ-9: PHQ-9 Score PHQ-9: Total score 6 12/02/24 08:41 Depression Screening Interpretation: Positive Depression Screening Follow-up: Existing condition and Follow-up Visit Requested Thrive Assessment: Date of Thrive Assessment Date Thrive assessed 12/02/24 12/02/24 08:23 Currently or been in a relationship where the following occur: No concerns reported Resp Effort & Inspection: normal respiratory effort Auscultation: clear to auscultation bilaterally Cardio Jugular venous distension: no JVD Rate: regular rate Rhythm: regular rhythm Heart sounds: S1 normal heart sound present and S2 normal heart sound present Extrem General: Yes full ROM Coding Level of Care Code Est Pt Level 4 (78409) Complex EM visit Add On G2211 Diagnoses Transaminitis R74.01 Elevated total protein R77.8 Hypothyroidism E03.9 Celiac disease K90.0 Chronic idiopathic constipation K59.04 Additional Codes NGHIA-7 Assessment Billing - NGHIA-7 Assessment Tool: NGHIA-7 Assessment 53182 ([id number]) PHQ-9 - 25238 - PHQ-9 Billing: Yes ([id number]) Time Spent (min) 22 Assessment & Plan Assessment & Plan (1) Transaminitis: Code(s): R74.01 - Elevation of levels of liver transaminase levels Category: Medical (2) Elevated total protein: Code(s): R77.8 - Other specified abnormalities of plasma proteins Category: Medical (3) Hypothyroidism: Code(s): E03.9 - Hypothyroidism, unspecified Category: Medical (4) Celiac disease: Code(s): K90.0 - Celiac disease Category: Medical (5) Chronic idiopathic constipation: Code(s): K59.04 - Chronic idiopathic constipation Category: Medical Plan The patient will maintain adherence to a gluten-free diet while ensuring adequate caloric and nutrient intake to manage weight loss in the context of celiac disease. Regular monitoring of vitamin levels and liver enzymes is necessary, alongside scheduled endocrinology and gastroenterology follow-ups. The positive HPV Pap smear requires further follow-up with pending biopsy results. Management of constipation with Senna will continue, with no current need for psychiatric intervention for mild situational depression. Patient was informed and verbally consented to the use of an ambient scribe for clinic note documentation during this visit. I discussed with the patient the importance of maintaining a gluten-free diet and exploring diverse gluten-free food options to manage weight loss. The role of celiac disease in nutritional and weight changes was clarified. We reviewed the possible reasons behind elevated liver enzymes and the normal findings on the liver ultrasound. Prognosis and monitoring requirements for weight, vitamin levels, and liver enzymes were emphasized. The significance of HPV-positive pap results was addressed, and a follow-up plan upon receiving biopsy results was confirmed. The patient showed understanding of her comprehensive management plan and anticipated dietary modifications. Orders: Orders Complete Blood Count Auto Diff 6 Months D64.9 - Anemia, unspecified Lipid Panel 6 Months E78.5 - Hyperlipidemia, unspecified IRON PROFILE 6 Months D64.9 - Anemia, unspecified Vitamin B12 and Folate 6 Months E53.8 - Deficiency of other specified B group vitamins Vitamin D 25-OH Total 6 Months E55.9 - Vitamin D deficiency, unspecified Thyroid Stimulating Hormone 6 Months E03.9 - Hypothyroidism, unspecified Comprehensive Ransom. Panel Fast 6 Months R74.01 - Elevation of levels of liver transaminase levels Patient Instructions: - Continue a strict gluten-free diet. - Increase caloric intake with gluten-free options. - Maintain regular follow-ups with endocrine and gastroenterology. - Take Senna as needed for constipation. - Follow up on pending HPV biopsy results. - Stay hydrated and monitor daily nutrition closely. - Seek further medical advice if significant weight changes continue.
[2024-12-02 08:17] VITALS: BP 112/76; BMI 21.1
== END 2024-12-02 08:53 | disposition home or self-care (01) ==
LOC: HO.HMCH 08:12
PROVIDERS: PCP Internal Medicine; Visit Provider Internal Medicine
DX: R74.01 Elevation of levels of liver transaminase levels (principal); R77.8 Other specified abnormalities of plasma proteins; E03.9 Hypothyroidism, unspecified; K90.0 Celiac disease; K59.04 Chronic idiopathic constipation

== ENCOUNTER → 2024-12-02 08:11 | Outpatient (BNVA) | payer OTHER, SELFPAY | PROVIDERS: PCP Internal Medicine; Visit Provider Internal Medicine | DX: R74.01 Elevation of levels of liver transaminase levels (principal); R77.8 Other specified abnormalities of plasma proteins; E03.9 Hypothyroidism, unspecified; K90.0 Celiac disease; K59.04 Chronic idiopathic constipation | CPT/HCPCS: 96127 ==

== ENCOUNTER 2024-12-19 11:29 | Outpatient (AMB) | payer OTHER, SELFPAY ==
--- NOTE | 2024-12-19 11:31 | MHC.OFFVIS ---
Vital Signs 12/19/24 11:32 Height 5 ft 4 in Weight 123 lb BMI 21.1 Intake Visit Reasons: post op Allergies hepatitis B virus vaccine Adverse Reaction (Unknown, Verified 12/02/24 08:37) Blurry Vision HPI Comments Details: The patient is presenting post hysteroscopy D&C IUD removal, no complaints minimal vaginal bleeding no feverishness chills or abdominal pain. The pathology showed the following: Endometrium, curettage: Chronic endometritis with many histiocytes, and gland atrophy and decidual stromal change consistent with progestin effect; no atypia or carcinoma. The following workup for AUB has been done so far H&H 13.4/40.1 TSH within normal GC/CT negative Co testing done recently was negative/HPV high-risk positive, HPV 16/18 negative, previous co testing was negative in 202210/05/2024 pelvic ultrasound showed the following: Transvaginal scanning performed. Anteverted uterus is 8.5 cm length. 1.1 cm fundal leiomyoma. Endometrium 8 mm thickness. an IUD is present. small endometrial cyst measuring 3 mm. Right ovary 2.9 x 1.9 x 2.3 cm. Left ovary 3.2 x 1.5 x 2.5 cm. Normal color Doppler of both ovaries. No free fluid. IMPRESSION: 1. IUD adequately positioned. 2. Small endometrial cyst. 3. Small fundal leiomyoma. [facility] Medical History Elevated cholesterol Pre-diabetes Thyroid disease Celiac disease Fibroid Abnormal Pap smear of cervix IUD (intrauterine device) in place Heavy menses Over weight Surgical History No pertinent past surgical history Family History Mother Diabetes Father Parkinson disease Family/Other Substance use disorder Mental health disorder Maternal Grandfather Heart transplant status Social History Household Members: Family Housing: House Alcohol intake: former Patient Tobacco Use Status: Never used Tobacco e-Cigarette/Vaping Use: Never Used Second Hand Smoke Exposure: No service: No Current occupational status: employed Current occupation: [employer] Current occupational exposures/hazards: No Cognitive needs: No Hearing needs: No Vision needs: Yes Review of Systems Const All systems reviewed & are unremarkable except as noted in HPI and below Reports as per HPI and Reports no additional complaints GI Reports no additional complaints Reports no additional complaints Physical Exam Vital Signs: BMI result Body Mass Index 21.1 Assessment & Plan Assessment & Plan (1) Abnormal uterine bleeding (AUB): Code(s): N93.9 - Abnormal uterine and vaginal bleeding, unspecified Category: Medical Plan: Discussed with the patient the results of the work up done and options of treatment including Lysteda, BCP's, Mirena IUD, endometrial ablation and hysterectomy. All pros, cons, risks and benefits if each option was discussed with the patient and the patient decided to think about it and get back to us. Instructions given the patient to use a backup method for control. All questions answered the patient verbalized understanding. (2) Uterine myoma: Code(s): D25.9 - Leiomyoma of uterus, unspecified Category: Medical Plan: Counseling regarding options of treatment, the patient elected for expectant management, pelvic ultrasound ordered and scheduled (3) Cervical high risk HPV (human papillomavirus) test positive: Code(s): R87.810 - Cervical high risk human papillomavirus (HPV) DNA test positive Category: Medical Plan: Co testing schedule an a year Coding Level of Care Code Est Pt Level 3 (71421) Diagnoses Abnormal uterine bleeding (AUB) N93.9 Uterine myoma D25.9 Cervical high risk HPV (human papillomavirus) test positive R87.810
[2024-12-19 11:32] VITALS: BMI 21.1
== END 2024-12-19 11:43 | disposition home or self-care (01) ==
LOC: HO.HWS 11:29
PROVIDERS: PCP Internal Medicine; Visit Provider Obstetrics & Gynecology
DX: N93.9 Abnormal uterine and vaginal bleeding, unspecified (principal); D25.9 Leiomyoma of uterus, unspecified; R87.810 Cervical high risk human papillomavirus (HPV) DNA test positive
CPT/HCPCS: 99213

== ENCOUNTER → 2024-12-19 11:29 | Outpatient (BNVA) | payer OTHER, SELFPAY | PROVIDERS: PCP Internal Medicine; Visit Provider Obstetrics & Gynecology ==

== ENCOUNTER 2024-12-27 10:40 | Day surgery (SDC) | payer OTHER, SELFPAY ==
--- NOTE | 2024-12-26 09:49 | P.CONAN_ITS ---
Documented by User: Tarsha Solis NP 12/26/24 09:50 HPI - Anesthesia Eval Consult details Narrative: 44yo F for Upper Endoscopy and Colonoscopy PMF Active Problems Active Problems: All Active Problems Chronic idiopathic constipation (Acute) Cervical high risk HPV (human papillomavirus) test positive (Acute) Uterine myoma (Acute) Abnormal uterine bleeding (AUB) (Acute) Anxiety (Acute) Transaminitis (Acute) Encounter for well woman exam with routine gynecological exam (Acute) Abnormal gamma globulin level (Acute) Physical exam (Acute) Lumbar pain (Acute) Elevated total protein (Acute) Keratoconus of both eyes (Acute) Screening for cervical cancer (Acute) Hypothyroidism (Acute) Other specified hypothyroidism (Acute) Celiac disease (Acute) Fibroid (Acute) Heavy menses (Acute) Past Medical History Medical History Elevated cholesterol Pre-diabetes Thyroid disease Celiac disease Fibroid Abnormal Pap smear of cervix IUD (intrauterine device) in place Heavy menses Over weight Family History Family History Mother Diabetes Father Parkinson disease Family/Other Substance use disorder Mental health disorder Maternal Grandfather Heart transplant status Family history of problems with anesthesia: No Surgical History Surgical History No pertinent past surgical history History of Problems with Anesthesia: No Social History Social History Household Members: Family Housing: House Are you a primary home care attendant to a significant other at home: No Do you presently have visiting nurse or other home services: No Alcohol intake: former Patient Tobacco Use Status: Former Tobacco user e-Cigarette/Vaping Use: Never Used Second Hand Smoke Exposure: No Use of substances other than those prescribed or required for medical reasons: No Have you been hit, kicked, punched, or otherwise hurt by someone within the past year? If so, by whom?: No Are you DNR?: No Advance Directives: No Advance Directives Information Provided: Yes Patient : No FDLMP: 11/26/2024 : No Poor oral hygiene: No service: No Current occupational status: employed Current occupation: [employer] Current occupational exposures/hazards: No Cognitive needs: No Hearing needs: No Vision needs: Yes Meds Allergies Allergy/AdvReac Type Severity Reaction Status Date / Time hepatitis B virus vaccine AdvReac Unknown Blurry Verified 12/27/24 11:13 Vision Home Medications ?Medication ?Instructions ?Recorded ?Confirmed ?Last Taken ?Type biotin 1 mg capsule 1 mg PO DAILY 09/04/24 12/27/24 Unknown History cholecalciferol (vitamin D3) 50 50 mcg PO DAILY 09/04/24 12/27/24 Unknown His tory mcg (2,000 unit) capsule omega-3 fatty acids 500 mg PO DAILY 10/15/24 12/27/24 Unknown History Exam Pertinent Lab Results Pertinent Lab Results: Laboratory Tests 09/30/24 10:24 WBC 4.3 L Hgb 13.4 Hct 40.1 Plt Count 214 Sodium 135 Potassium 4.8 Chloride 107 Carbon Dioxide 19 L BUN 4 L Creatinine 0.59 Assessment and Plan Assessment Anesthesia Assessment: Chart Reviewed Final Anesthetic Review Family History of Problems with Anesthesia: No History of Problems with Anesthesia: No Documented by User: Evy Cho MD 12/27/24 12:01 [facility] Past Medical History Medical History Elevated cholesterol Pre-diabetes Thyroid disease Celiac disease Fibroid Abnormal Pap smear of cervix IUD (intrauterine device) in place Heavy menses Over weight Family History Family History Mother Diabetes Father Parkinson disease Family/Other Substance use disorder Mental health disorder Maternal Grandfather Heart transplant status Surgical History Surgical History No pertinent past surgical history Social History Social History Household Members: Family Housing: House Are you a primary home care attendant to a significant other at home: No Do you presently have visiting nurse or other home services: No Alcohol intake: former Patient Tobacco Use Status: Former Tobacco user e-Cigarette/Vaping Use: Never Used Second Hand Smoke Exposure: No Use of substances other than those prescribed or required for medical reasons: No Have you been hit, kicked, punched, or otherwise hurt by someone within the past year? If so, by whom?: No Are you DNR?: No Advance Directives: No Advance Directives Information Provided: Yes Patient : No FDLMP: 11/26/2024 : No Poor oral hygiene: No service: No Current occupational status: employed Current occupation: [employer] Current occupational exposures/hazards: No Cognitive needs: No Hearing needs: No Vision needs: Yes Meds Allergies Allergy/AdvReac Type Severity Reaction Status Date / Time hepatitis B virus vaccine AdvReac Unknown Blurry Verified 12/27/24 11:13 Vision Home Medications ?Medication ?Instructions ?Recorded ?Confirmed ?Last Taken ?Type biotin 1 mg capsule 1 mg PO DAILY 09/04/24 12/27/24 Unknown History cholecalciferol (vitamin D3) 50 50 mcg PO DAILY 09/04/24 12/27/24 Unknown History mcg (2,000 unit) capsule omega-3 fatty acids 500 mg PO DAILY 10/15/24 12/27/24 Unknown History Exam Airway Mallampati Class: II TM Dist: >3cm Neck ROM: Full Heart: rrr Lungs: cta Assessment and Plan Assessment Anesthesia Assessment: Anesthesia Plan Discussed Final Anesthetic Review NPO: Yes ASA Class: III Final Preanesthetic Review: No Changes in Pt Med Stat, Meds/Allgs Chart Reviewed, Consent Obtained/Reviewed and Anes Risks/Benef Reviewed Patient Risk: Intermediate Procedure Risk: Low Anesthetic Plan Anesthetic Plan: MAC: Disposition: Standard PACU
[2024-12-27 11:14] LABS: UPreg QC Valid YES; Urine Pregnancy NEGATIVE (NEGATIVE)
[2024-12-27 11:16] VITALS: BP 110/70; PULSE 85; RESP 14; TEMP 36.7; O2SAT 97; BMI 20.1
[2024-12-27] MEDS: Lactated Ringers 1,000 ML 100 ML IVCONT (11:28)
--- NOTE | 2024-12-27 12:17 | MHC.SHP ---
Pre-Procedural Eval Section A - 24 Hr Update-Section A only Date of Service: 12/27/24 Section B - Complete if H&P > 30 days Chief Complaint: celiac disease, abd pain Details of Present Illness: Celiac disease Fibroid Over weight Abnormal Pap smear of cervix IUD (intrauterine device) in place Heavy menses Surgical History No pertinent past surgical history Family History Mother Diabetes Father Parkinson disease Family/Other Substance use disorder Mental health disorder Maternal Grandfather Heart transplant status Present Medications: see Short Stay Collaborative assessment Allergies: Allergies Allergy/AdvReac Type Severity Reaction Status Date / Time hepatitis B virus vaccine AdvReac Unknown Blurry Verified 12/27/24 11:13 Vision Review of Systems Review of Systems Comment: Ten point ROS negative Exam Exam Comment: Gen appear: No acute distress HEENT: no icterus Chest: No overt resp distress Abd: soft, nontender, nondistended Psych: Stable affect, answering questions appropriately Neuro: A/Ox3 noted to move all extremities spontaneously Ext: no peripheral edema Plan Diagnosis/Plan: Unchanged I have reviewed the history and physical and performed a pertinent physical examination on my patient. No changes have occurred unless specified. Time Spent With Patient Time: Total time managing care of this patient today ____ minutes.
--- NOTE | 2024-12-27 12:30 | P.OPN-COLO_ITS ---
Colonoscopy Operative Note Operative Note Date of Service: 12/27/24 Narrative: Procedure: Upper endoscopy and colonoscopy Indication: Celiac disease, abd pain Endoscopist: Selene Harkins MD Anesthesia Provider: Bhavana Garland CRNA Anesthesia type: MAC Instrument: [id number] and [id number] EGD Procedure:?? The procedure, indications, preparation and potential complications were reviewed with the patient, who indicated understanding and gave written informed consent to proceed. The endoscope was introduced through the mouth, and advanced to the 2nd part of the duodenum. The mucosa was carefully examined on slow withdrawal of the endoscope. The patient tolerated the procedure well. There were no immediate complications.? EGD Findings:? * Esophagus:? Normal esophageal mucosa was noted. The Z-line was at 35 cm. Random cold forceps biopsies were taken from esophagus to rule out eosinophilic esophagitis. * Stomach:? Patchy erythema with atrophic changes in fundus suspicous for underlying H Pylori. Retroflexion was performed in the cardia. Random cold forceps biopsies were taken from the stomach. * Duodenum:? Mild effacement of villi was noted in the duodenum to the extent visualized. Cold forceps biopsies were taken from the duodenal bulb and 2nd portion of the duodenum to rule out celiac sprue. Colonoscopy Procedure:? The patient was then turned for the colonoscopy. A digital rectal exam was performed which was normal.? A distal attachment cap was affixed to the tip of the scope and the colonoscope was then inserted through the anus and advanced through the colon and advanced to the cecum at 75 cm and terminal ileum.? Appendiceal orifice and ileocecal valve were identified. Mucosa was carefully examined under high definition white light as the instrument was slowly withdrawn in a retrograde panoramic fashion. Retroflexion was performed in rectum. The procedure was not difficult. The quality of the prep was BBPS: 2+3+3 = adequate Withdrawal time 6 minutes Limitations: No limitations Findings: Mucosa: Normal colon and terminal ileum mucosa. Protruding lesions: * Moderate internal hemorrhoids without stigmata of recent bleeding. Excavated lesions: * Mild diverticulosis in sigmoid colon. Impression: 1. Normal esophagus (biopsy) 2. Gastritis (biopsy) 3. Abnormal duodenal mucosa (biopsy) 4. Normal colon and terminal ileum mucosa 5. Internall hemorrhoids 6. Diverticulosis Recommendations:?? * Follow-up path results * Continue gluten free diet * Avoid NSAIDs * H Pylori treatment if biopsies + * Repeat colonoscopy for CRC screening in 10 years.
[2024-12-27 13:05] VITALS: BP 90/50; PULSE 85; RESP 16; TEMP 36.6; O2SAT 100
[2024-12-27 13:20] VITALS: BP 92/53; PULSE 79; RESP 16; O2SAT 99
[2024-12-27 13:32] VITALS: BP 110/66; PULSE 65; RESP 16; O2SAT 99
== END 2024-12-27 14:00 | disposition home or self-care (01) ==
PROVIDERS: Nurse Practitioner; PCP Internal Medicine; Visit Provider Internal Medicine
PROC: (CPT 45378; principal; 2024-12-27 12:00)
DX: R10.9 Unspecified abdominal pain (principal); K57.30 Diverticulosis of large intestine without perforation or abscess without bleeding; K64.8 Other hemorrhoids; K90.0 Celiac disease; K86.81 Exocrine pancreatic insufficiency; R14.0 Abdominal distension (gaseous); K29.50 Unspecified chronic gastritis without bleeding; K21.9 Gastro-esophageal reflux disease without esophagitis; Q39.8 Other congenital malformations of esophagus
CPT/HCPCS: 45378; 43239; 81025; 88305; 88313; 88342; J2003; J2250; J2371; J2704

== ENCOUNTER → 2024-12-27 10:40 | Outpatient (BNV) | payer OTHER, SELFPAY | PROVIDERS: PCP Internal Medicine; Visit Provider Internal Medicine | DX: K90.0 Celiac disease (principal); R10.9 Unspecified abdominal pain; K31.89 Other diseases of stomach and duodenum; K29.70 Gastritis, unspecified, without bleeding; K57.30 Diverticulosis of large intestine without perforation or abscess without bleeding; K64.8 Other hemorrhoids | CPT/HCPCS: 43239; 45378 ==

== ENCOUNTER 2025-01-07 09:46 | Outpatient (AMB) | payer OTHER, SELFPAY ==
--- NOTE | 2025-01-07 10:07 | A.OFFVIS_ITS ---
VS Expanded 01/07/25 10:15 Height 5 ft 4 in Weight 121 lb 4.068 oz BMI 20.8 Intake Visit Reasons: Abnormal weight loss Allergies hepatitis B virus vaccine Adverse Reaction (Unknown, Verified 12/27/24 11:13) Blurry Vision Nutrition Presentation Details: Pt presents for MNT for unintentional weight loss Pt reports having hx of unintentional weight loss with fear of possible diagnosis related to unintentional weight loss. Pt was about 140 in 08/2024. Pt reports feeling more comfortable now, has been dx with Celiac disease and is learning and choosing gluten free food options and gluten free meal preparations. Weight today at 121 lbs (12/2024) Pt reports preparing meals at home to prevent cross contamination , reports coffee with cream hazelnut gluten free B: 1 egg and smoothies ( apple/banana/berries) and 1 scoop protein powder GF with almond nuts pecan connor seeds with salt with c Lunch : rice (lentils/ split peas fried with onion/garlic pumpkin and shrimp and chicken, water or coconut water soup with chicken , vegetables dinner: same as lunch snack: snacks, gluten free crackers denies GI symptoms fluids: water, juice/smoothies BLK-Llaqwwc-Ed.Jeor Equation Height: 5 ft 4 in Weight: 121 lb Resting Metabolic Rate: 1186.82 Calculated Activity Level: Mild Activity Calories Needed to Maintain Weight: 1631.88 Diagnosis Nutrition problem #1: unintended weight loss As related to (etiology) #1: diagnosis (ceiiac ) As evidenced by (sign/symptom) #1: knowledge deficit of diet [facility] Medical History Elevated cholesterol Pre-diabetes Thyroid disease Celiac disease Fibroid Abnormal Pap smear of cervix IUD (intrauterine device) in place Heavy menses Over weight Surgical History No pertinent past surgical history Family History Mother Diabetes Father Parkinson disease Family/Other Substance use disorder Mental health disorder Maternal Grandfather Heart transplant status Social History Household Members: Family Housing: House Are you a primary healthcare analyst to a significant other at home: No Do you presently have visiting nurse or other home services: No Alcohol intake: former Patient Tobacco Use Status: Former Tobacco user e-Cigarette/Vaping Use: Never Used Second Hand Smoke Exposure: No service: No Current occupational status: employed 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 occupational exposures/hazards: No Cognitive needs: No Hearing needs: No Vision needs: Yes Assessment & Plan Assessment & Plan (1) Unintentional weight loss: Comment: Had lost about 20 lbs since 08/2024 unintentionally and is gradually regaining after dx of celiac disease and choosing GF foods , today's wt at 121 lbs (12/2024) Code(s): R63.4 - Abnormal weight loss Category: Medical Plan: Wt: 55 Kg ( 01/15 ) Est kcal needs as per MSJ: 1600 (40% carb, 30% protein/fat) Est fluid needs as per 25-30 ml/d: 1700 Est prot per day as per 1 g/kg bw: 60 Recommend fiber intake : 8-10 g per day and gradually increase to 25-28 g per day for women and 35-38 g for men or as tolerated Recommend sodium intake per day : less than 2300 mg Educated patient on: ( R = reviewed V = verbalizes understanding N/R = needs review N/A = not applicable * Naturally Gluten free foods : R, V * Differences between complex carbohydrates a simple carbohydrates, role of fiber in diet and gluten free options : R V * Lean protein sources of foods: R * Fats and nutrient absorption: R * Food sources of sodium in salt and healthy modifications for heart health in kidney health: R V R/V * Vitamins and minerals: R V N/R * GF Healthy plate method concept: R * Physical activity: Benefits a precaution: R V N/R * Patient Instructions: Continue choosing gluten free options (naturally and also read food labels) have 3 meals with at least 2-3 oz of protein per meal Have at least 2 snacks in between meals : choose nuts and fruits or gluten free almond cracker and cheese , fruit/veg smoothies with yogurt see GF education handout Coding Level of Care Code Nutr Indiv Intake (35093) Diagnoses Unintentional weight loss R63.4
[2025-01-07 10:15] VITALS: BMI 20.8
[2025-01-20 12:20] VITALS: BMI 20.8
== END 2025-01-07 11:35 | disposition home or self-care (01) ==
LOC: HO.ENCR 09:47
PROVIDERS: PCP Internal Medicine; Visit Provider Dietitian, Registered
DX: R63.4 Abnormal weight loss (principal)

== ENCOUNTER → 2025-01-07 09:46 | Outpatient (BNVA) | payer OTHER, SELFPAY | PROVIDERS: PCP Internal Medicine; Visit Provider Dietitian, Registered | DX: R63.4 Abnormal weight loss (principal) | CPT/HCPCS: 97802 ==

== ENCOUNTER 2025-02-25 11:49 | Outpatient (AMB) | payer OTHER, SELFPAY ==
--- NOTE | 2025-02-25 11:54 | MHC.OFFVIS ---
Vital Signs 02/25/25 11:56 Height 5 ft 4 in Weight 124 lb 10.616 oz BMI 21.4 BP 99/60 Blood Pressure Location Lt brachial Position Sitting Pulse 85 Intake Visit Reasons: s/p double Torin Intake Note: Rosi presents in the office as a follow up for her EGD and COLO. CC: Just here for her results! No other concerns today. Retail Custodial Associate Required: No Allergies hepatitis B virus vaccine Adverse Reaction (Unknown, Verified 02/25/25 11:58) Blurry Vision HPI HPI s/p double Torin: Details: LAST VISIT: Celiac disease Constipation Postprandial abdominal pain in right upper quadrant Epigastric pain Abdominal bloating Halitosis Rectal bleed Plan Patient is requesting referral to dietitian. Still losing weight. Discussed with her the importance of eating often more protein. Patient will try. Acid reflux, epigastric pain is more or less under control with diet. Patient is compliant with gluten free diet. Reports still constipation. She will go back to taking her 1 senna 1 day and then to send us the following day. Occasional blood in her stool patient will be sent for colonoscopy. What to expect before during and after procedure discussed with patient. Stressed the importance of clear liquid diet day before procedure. I will see her after the procedure, sooner on as needed basis. Patient is agreeable to this plan and verbalizes understanding of instructions. She was given the opportunity to ask questions and all questions answered. ? Thank you for allowing me to participate in her care Referrals [employer]er Nutrition Referral R63.4 New hydrocortisone 2.5% (Proctosol HC) 1 appl NM BID-QID PRN 30 grams 2RF hemorrhoids K64.9 bisacodyl (Dulcolax (bisacodyl)) take 4 tabs at noon the day before your colonoscopy 20 mg (4 x 5 mg) PO ONCE 4 tabs 0RF 1 day Z12.11 polyethylene glycol 3350 (Miralax) As directed by gastroenterology department at [facility] 238 grams PO ONCE 238 grams 0RF Z12.11 ENDOSCOPY AND COLONOSCOPY: EGD Findings:? Esophagus:? Normal esophageal mucosa was noted. The Z-line was at 35 cm. Random cold forceps biopsies were taken from esophagus to rule out eosinophilic esophagitis. Stomach:? Patchy erythema with atrophic changes in fundus suspicous for underlying H Pylori. Retroflexion was performed in the cardia. Random cold forceps biopsies were taken from the stomach. Duodenum:? Mild effacement of villi was noted in the duodenum to the extent visualized. Cold forceps biopsies were taken from the duodenal bulb and 2nd portion of the duodenum to rule out celiac sprue. Colonoscopy Procedure:? The patient was then turned for the colonoscopy. A digital rectal exam was performed which was normal.? A distal attachment cap was affixed to the tip of the scope and the colonoscope was then inserted through the anus and advanced through the colon and advanced to the cecum at 75 cm and terminal ileum.? Appendiceal orifice and ileocecal valve were identified. Mucosa was carefully examined under high definition white light as the instrument was slowly withdrawn in a retrograde panoramic fashion. Retroflexion was performed in rectum. The procedure was not difficult. The quality of the prep was BBPS: 2+3+3 = adequate Withdrawal time 6 minutes Limitations: No limitations Findings: Mucosa: Normal colon and terminal ileum mucosa. Protruding lesions: Moderate internal hemorrhoids without stigmata of recent bleeding.Excavated lesions: Mild diverticulosis in sigmoid colon. Impression: 1. Normal esophagus (biopsy) 2. Gastritis (biopsy) 3. Abnormal duodenal mucosa (biopsy) 4. Normal colon and terminal ileum mucosa 5. Internall hemorrhoids 6. Diverticulosis Recommendations:?? Follow-up path results Continue gluten free diet Avoid NSAIDs H Pylori treatment if biopsies + Repeat colonoscopy for CRC screening in 10 years PATHOLOGY RESULTS Diagnosis A. Duodenum, 2nd portion, biopsy: Duodenal mucosa with focal partial villous blunting and partially denuded surface epithelium. See comment. B. Duodenum, bulb, biopsy: Duodenal mucosa with focal partial villous blunting. See comment. C. Stomach, random, biopsy: Antral-type and oxyntic mucosa with moderate chronic inactive inflammation; no Helicobacter organisms seen. D. Esophagus, random, biopsy: Squamous epithelium within normal limits; no inflammation seen. Comment: The patient's history of celiac disease is noted. Intraepithelial lymphocytes do not appear significantly increased in number in the duodenal samples. TODAY'S VISIT Patient is here today for follow-up and to discuss upper endoscopy and colonoscopy results. Patient denies any ill effects from the prep, anesthesia or procedure itself. Denies any GI concerning symptoms today. Reports that she is using gluten scanner hany and she is avoiding gluten. Patient is no longer experiencing epigastric pain or bloating. Patient's is feeling fairly well. Denies any dyspepsia, dysphagia or odynophagia. Denies melena, hematochezia, unintentional weight loss or ribbon like stools. Pathology confirms celiac disease without significant increase in intraepithelial lymphocytes. Patient is taking omeprazole daily as well as senna. Patient reports senna helps with bowel movements. Colonoscopy was normal, repeat in 10 years. [facility] Medical History Elevated cholesterol Pre-diabetes Thyroid disease Celiac disease Fibroid Abnormal Pap smear of cervix IUD (intrauterine device) in place Heavy menses Over weight Surgical History (Updated 02/25/25 @ 11:58 by ALMAZ Wilson) Hx of colonoscopy History of esophagogastroduodenoscopy (EGD) No pertinent past surgical history Family History Mother Diabetes Father Parkinson disease Family/Other Substance use disorder Mental health disorder Maternal Grandfather Heart transplant status Social History Household Members: Family Housing: House Are you a primary child day care provider to a significant other at home: No Do you presently have visiting nurse or other home services: No Alcohol intake: former Patient Tobacco Use Status: Former Tobacco user e-Cigarette/Vaping Use: Never Used Second Hand Smoke Exposure: No service: No Current occupational status: employed 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 Current occupational exposures/hazards: No Cognitive needs: No Hearing needs: No Vision needs: Yes Review of Systems Const Denies weight gain and Denies weight loss ENT Reports no additional complaints, Denies dysphagia and Denies odynophagia Card Reports no additional complaints Resp Reports no additional complaints GI Denies abdominal pain, Denies belching, Denies melena, Denies bloating, Denies hematochezia, Denies change in bowel habits, Denies constipation, Denies dysphagia, Denies excessive flatus, Denies dyspepsia, Denies heartburn, Denies diarrhea, Denies loose stools, Denies nausea, Denies odynophagia and Denies vomiting Reports no additional complaints Musc Reports no additional complaints Neuro Reports no additional complaints Psych Reports no additional complaints Endo Reports no additional complaints Physical Exam Vital Signs: Last Vital Signs Pulse 85 02/25/25 11:56 BP 99/60 02/25/25 11:56 BMI result Body Mass Index 21.4 Const General: healthy appearing, no acute distress and well developed Nutritional Appearance: well nourished Orientation/consciousness: patient oriented x3 Cardio Rate: regular rate GI Inspection: Yes normal to inspection and No distended Palpation (GI): Soft to palpation, not firm, nontender and No hepatosplenomegaly present Auscultation: normal bowel sounds General: Yes no CVA tenderness Back/Spine/Pelvis Back: no CVA tenderness Skin General skin exam: elasticity normal, turgor normal and dry skin Neuro General: patient oriented x3 Psych Appearance: grossly normal Mental Status: mental status grossly normal Affect: Anxious affect present Insight: Good insight present (Psych) Assessment & Plan Assessment & Plan (1) Transaminitis: Code(s): R74.01 - Elevation of levels of liver transaminase levels Category: Medical (2) Celiac disease: Code(s): K90.0 - Celiac disease Category: Medical (3) Chronic idiopathic constipation: Code(s): K59.04 - Chronic idiopathic constipation Category: Medical (4) Constipation: Code(s): K59.00 - Constipation, unspecified Qualifiers: Constipation type: chronic idiopathic constipation Qualified Code(s): K59.04 - Chronic idiopathic constipation (5) Postprandial abdominal pain in right upper quadrant: Code(s): R10.11 - Right upper quadrant pain (6) Epigastric pain: Code(s): R10.13 - Epigastric pain (7) Abdominal bloating: Code(s): R14.0 - Abdominal distension (gaseous) (8) Halitosis: Code(s): R19.6 - Halitosis (9) Rectal Hemorrhage: Code(s): K62.5 - Hemorrhage of anus and rectum Plan Patient will continue taking senna daily. Increase fluid intake and activity to promote better bowel motility. Patient will continue senna as needed. Continue avoiding gluten. Continue PPI. Avoid dietary triggers and late night snacking. Staying upright for minimum 3 hours after meals discussed with patient. Follow-up in 3 months, sooner on as needed basis. She is agreeable to this plan and verbalizes understanding of instructions. She was given the opportunity to ask questions and all questions answered. Thank you for allowing me to participate in her care Medications: Refilled sennosides (Natural Senna Laxative) 17.2 mg (2 x 8.6 mg) PO BEDTIME 180 tabs 3RF constipation K59.00 - Constipation, unspecified Coding Level of Care Code Est Pt Level 4 (12244) Complex EM visit Add On G2211 Diagnoses Transaminitis R74.01 Celiac disease K90.0 Chronic idiopathic constipation K59.04 Chronic idiopathic constipation K59.04 Constipation type: chronic idiopathic constipation Postprandial abdominal pain in right upper quadrant R10.11 Epigastric pain R10.13 Abdominal bloating R14.0 Halitosis R19.6 Rectal Hemorrhage K62.5 Time Spent (min) 40 Comment 25 minutes spent with patient and additional 15 minutes spent reviewing her records
[2025-02-25 11:56] VITALS: BP 99/60; PULSE 85; BMI 21.4
== END 2025-02-25 12:39 | disposition home or self-care (01) ==
LOC: HO.HGI 11:50
PROVIDERS: PCP Internal Medicine; Visit Provider Nurse Practitioner Family
DX: R74.01 Elevation of levels of liver transaminase levels (principal); K90.0 Celiac disease; R10.11 Right upper quadrant pain; R10.13 Epigastric pain; R14.0 Abdominal distension (gaseous); R19.6 Halitosis; K62.5 Hemorrhage of anus and rectum
CPT/HCPCS: 99214

== ENCOUNTER 2025-04-07 12:36 | Outpatient (REF) | payer OTHER, SELFPAY ==
--- NOTE | ~2025-04-07 | US_ITS ---
EXAMINATION: US PELVIS TRANSABDOMINAL AND TRANSVAGINAL HISTORY: D21.9 - Benign neoplasm of connective and other soft tissue, unspecified COMPARISON: Comparison is made with the prior examination dated 10/04/2024. TECHNIQUE: Transabdominal and endovaginal real-time 2D hamilton-scale ultrasound was performed. FINDINGS: Uterus: The uterus is normal in size, measuring 9.8 x 4.6 x 6.2 cm. The uterus is retroverted and retroflexed . Myometrium has a normal echotexture. Again seen is a 10 x 7 x 8 mm fundal fibroid. There is a 4 mm cystic space noted. Endometrium: The endometrial stripe measures 7 mm in thickness. There are complex nabothian cysts in the cervix. Right ovary: The right ovary measures 3.7 x 1.9 x 1.8 cm. The right ovary is normal in size and echotexture. Left ovary: The left ovary measures 2.1 x 2.2 x 2.4 cm. The left ovary is normal in size and echotexture. There is a 1.6 x 1.3 x 1.3 cm cyst versus follicle. Pelvic fluid: none. US/US pelvic and transvaginal IMPRESSION: 10 x 7 x 8 mm fundal fibroid. 1.6 x 1.3 x 1.3 cm left ovarian cyst versus follicle. Electronically signed by: Gold Sanchez MD 04/07/2025 02:07 PM EDT
== END 2025-04-07 12:37 | disposition home or self-care (01) ==
LOC: HO.US 12:36
PROVIDERS: PCP Internal Medicine; Visit Provider Advanced Practice Midwife
DX: D21.9 Benign neoplasm of connective and other soft tissue, unspecified (principal)
CPT/HCPCS: 76830; 76856

== ENCOUNTER → 2025-04-07 12:38 | Outpatient (BNV) | payer OTHER, SELFPAY | PROVIDERS: PCP Internal Medicine; Visit Provider Radiology Diagnostic Radiology | DX: N83.292 Other ovarian cyst, left side (principal); D25.9 Leiomyoma of uterus, unspecified | CPT/HCPCS: 76830; 76856 ==

== ENCOUNTER 2025-04-22 11:17 | Outpatient (AMB) | payer OTHER, SELFPAY ==
--- NOTE | 2025-04-22 11:29 | A.OFFVIS_ITS ---
Vital Signs 04/22/25 11:30 Height 5 ft 4 in Weight 129 lb BMI 22.1 Intake Visit Reasons: Ultrasound follow up Intake Note: review u/s results Visitor Services Specialist Required: No Information Interpreted: non-clinical & clinical Sane Nurse: Sane Nurse Present Accompanied by: Self / Same As Patient Allergies hepatitis B virus vaccine Adverse Reaction (Unknown, Verified 04/22/25 11:31) Blurry Vision Medication List - Last Reconciled 04/22/25 by Jade Hein LPN biotin 1 mg PO DAILY cholecalciferol (vitamin D3) 50 mcg PO DAILY hydrocortisone 2.5% (Proctosol HC) 1 appl VT BID-QID PRN levothyroxine 88 mcg PO ONCE 90 days omega-3 fatty acids 500 mg PO DAILY omeprazole 20 mg PO DAILY sennosides (Natural Senna Laxative) 17.2 mg (2 x 8.6 mg) PO BEDTIME Is last menstrual period known: Yes Last menstrual period: 04/08/25 Do you need a note to return to daycare/school/sports/work: No HPI Comments Details: Patient is here today for a follow up pelvic ultrasound, history of fibroids. She reports all of her perimenopausal symptoms resolved after taking vitamin-D and going gluten free. Cycles are regular x3 days heavy for 1 day. She is not sexually active. She did not report any other concerns today. [facility] Medical History Elevated cholesterol Pre-diabetes Thyroid disease Celiac disease Fibroid Abnormal Pap smear of cervix Heavy menses Over weight Surgical History Hx of colonoscopy History of esophagogastroduodenoscopy (EGD) No pertinent past surgical history Family History Mother Diabetes Father Parkinson disease Family/Other Substance use disorder Mental health disorder Maternal Grandfather Heart transplant status Social History Household Members: Family Housing: House Are you a primary pharmacist critical care to a significant other at home: No Do you presently have visiting nurse or other home services: No Alcohol intake: former Patient Tobacco Use Status: Former Tobacco user e-Cigarette/Vaping Use: Never Used Second Hand Smoke Exposure: No service: No 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 occupational status: employed 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 occupational exposures/hazards: No Cognitive needs: No Hearing needs: No Vision needs: Yes Female Reproductive History Menstrual Date of last menstrual period: 04/08/25 control method: abstinence Review of Systems Const All systems reviewed & are unremarkable except as noted in HPI and below Endo Reports no additional complaints Physical Exam Vital Signs: BMI result Body Mass Index 22.1 Const General: cooperative, healthy appearing and no acute distress Psych Appearance: well kempt Attitude: cooperative Thought process: Normal thought process present Results Reviewed Results Reviewed: [address] [address] Ultrasound Report Signed Patient: Rosi Turner MR#: [id number] : 1980 Acct:[id number] Age/Sex: 44 / F ADM Date: 04/07/25 Loc: [facility].US Attending Dr: Annalise Paige CNM Ordering Physician: Annalise Paige CNM Date of Service: 04/07/25 Procedure(s): US pelvic and transvaginal Accession Number(s): [id number] cc: Annalise Paige CNM; Kiley Ramsey MD~ Reason for Exam: D21.9 - Benign neoplasm of connective and other soft tissue, unspecified EXAMINATION: US PELVIS TRANSABDOMINAL AND TRANSVAGINAL HISTORY: D21.9 - Benign neoplasm of connective and other soft tissue, unspecified COMPARISON: Comparison is made with the prior examination dated 10/04/2024. TECHNIQUE: Transabdominal and endovaginal real-time 2D hamilton-scale ultrasound was performed. FINDINGS: Uterus: The uterus is normal in size, measuring 9.8 x 4.6 x 6.2 cm. The uterus is retroverted and retroflexed . Myometrium has a normal echotexture. Again seen is a 10 x 7 x 8 mm fundal fibroid. There is a 4 mm cystic space noted. Endometrium: The endometrial stripe measures 7 mm in thickness. There are complex nabothian cysts in the cervix. Right ovary: The right ovary measures 3.7 x 1.9 x 1.8 cm. The right ovary is normal in size and echotexture. Left ovary: The left ovary measures 2.1 x 2.2 x 2.4 cm. The left ovary is normal in size and echotexture. There is a 1.6 x 1.3 x 1.3 cm cyst versus follicle. Pelvic fluid: none. US/US pelvic and transvaginal IMPRESSION: 10 x 7 x 8 mm fundal fibroid. 1.6 x 1.3 x 1.3 cm left ovarian cyst versus follicle. Electronically signed by: Gold Sanchez MD 04/07/2025 02:07 PM EDT RP Dictated By: Gold Sanchez MD Signed By: <Electronically signed by Gold Sanchez MD in OV> 04/07/25 1407 DD/ 1311 TD/TT: 04/07/25 1335 Title Examiner: Assessment & Plan Assessment & Plan (1) Uterine myoma: Code(s): D25.9 - Leiomyoma of uterus, unspecified Category: Medical Qualifiers: Uterine leiomyoma location: unspecified location Qualified Code(s): D25.9 - Leiomyoma of uterus, unspecified Plan Discussed: Ultrasound findings- IMPRESSION: 10 x 7 x 8 mm fundal fibroid. 1.6 x 1.3 x 1.3 cm left ovarian cyst versus follicle. Counseled re: Leiomyoma: common pelvic neoplasm. Differential diagnosis-may include but not limited to- leiomyosarcoma which is a rare uterine sarcoma 3- 7/100,000, difficult to distinguish from fibroids on ultrasound from uterine sarcoma's. Unlikely any single test will have a highly positive predictive value. Hysterectomy is not recommended for sole purpose of excluding malignant neoplasm. Consult for surgical exploration, medical treatment, other treatments, verses expectant management, pros and cons, risks and benefits. Expectant management follow up in 6 months, then yearly for stability. Patient prefers to proceed with expectant management. Referral to MD if indicated for level of care if indicated Report any AUB, pelvic pressure, bloating, or pain. Annual exam scheduled August 2025. The patient expressed understanding and agreement with the plan of care. All of her questions and concerns were addressed to the best of my ability. This note is constructed using voice recognition software. While every effort has been made to ensure accuracy, machine castings plasterer errors may have been included. Orders: Orders US pelvic and transvaginal 6 Months D25.9 - Leiomyoma of uterus, unspecified Coding Level of Care Code Est Pt Level 3 (28456) Diagnoses Uterine leiomyoma, unspecified location D25.9 Uterine leiomyoma location: unspecified location
[2025-04-22 11:30] VITALS: BMI 22.1
== END 2025-04-22 12:46 | disposition home or self-care (01) ==
LOC: HO.HWS 11:18
PROVIDERS: PCP Internal Medicine; Visit Provider Advanced Practice Midwife
DX: D25.9 Leiomyoma of uterus, unspecified (principal)
CPT/HCPCS: 99213

== ENCOUNTER 2025-05-12 10:22 | Outpatient (AMB) | payer OTHER, SELFPAY ==
--- NOTE | 2025-05-12 10:30 | MHC.OFFVIS ---
Vital Signs 05/12/25 10:31 Height 5 ft 4 in Weight 132 lb 4.438 oz BMI 22.7 BP 102/66 Blood Pressure Location Rt brachial Position Sitting Pulse 80 Pulse Source Pulse Oximeter Pulse Oximetry (%) 100 Oxygen Delivery Method Room Air Intake Visit Reasons: 6m epigastric pain, bloating, constipation Intake Note: ESTABLISHED PATIENT for mgmt GERD / dyspepsia. CC: Pt denies any GI changes or new sx since last visit. Confirms she is taking her currently Rx'd therapies as instructed and w/o complications. Nurse Midwife/Clinical Instructor Required: No Nurse Midwife/Clinical Instructor Services: Nurse Midwife/Clinical Instructor Offered & Declined Accompanied by: Self / Same As Patient Allergies hepatitis B virus vaccine Adverse Reaction (Unknown, Verified 05/12/25 10:30) Blurry Vision HPI HPI 6m epigastric pain, bloating, constipation: Details: LAST VISIT: Transaminitis Celiac disease Chronic idiopathic constipation Constipation Postprandial abdominal pain in right upper quadrant Epigastric pain Abdominal bloating Halitosis Rectal Hemorrhage Plan Patient will continue taking senna daily. Increase fluid intake and activity to promote better bowel motility. Patient will continue senna as needed. Continue avoiding gluten. Continue PPI. Avoid dietary triggers and late night snacking. Staying upright for minimum 3 hours after meals discussed with patient. Follow-up in 3 months, sooner on as needed basis. She is agreeable to this plan and verbalizes understanding of instructions. She was given the opportunity to ask questions and all questions answered. ? Thank you for allowing me to participate in her care Refilled sennosides (Natural Senna Laxative) 17.2 mg (2 x 8.6 mg) PO BEDTIME 180 tabs 3RF constipation K59.00 TODAY'S VISIT Patient is here today for follow-up. Patient reports that she has been doing well since last visit. Patient is following gluten free diet and is doing well. Denies any abdominal pain or discomfort. Patient is taking omeprazole daily that helps her with acid reflux. Patient denies dyspepsia, dysphagia odynophagia. Denies any abdominal pain or discomfort. Reports taking senna 1 tablet daily and her bowels are moving better. Patient is also drinking more fluids and eating healthier. Patient denies any bowel abnormalities. Denies melena, hematochezia, unintentional weight loss or ribbon like stools. Patient reports to be feeling fairly well. Patient reports that she has more appetite and eating better. Patient reports gaining some of her weight back. [facility] Medical History (Updated 05/12/25 @ 13:48 by Hollie Keller, [facility]) GERD (gastroesophageal reflux disease) Elevated cholesterol Pre-diabetes Thyroid disease Celiac disease Fibroid Abnormal Pap smear of cervix Heavy menses Over weight Surgical History Hx of colonoscopy History of esophagogastroduodenoscopy (EGD) No pertinent past surgical history Family History Mother Diabetes Father Parkinson disease Family/Other Substance use disorder Mental health disorder Maternal Grandfather Heart transplant status Social History Household Members: Family Housing: House Are you a primary healthcare consulting manager to a significant other at home: No Do you presently have visiting nurse or other home services: No Alcohol intake: former Patient Tobacco Use Status: Former Tobacco user e-Cigarette/Vaping Use: Never Used Second Hand Smoke Exposure: No service: No Current occupational status: employed Current occupation: [employer] Current occupational exposures/hazards: No Cognitive needs: No Hearing needs: No Vision needs: Yes Review of Systems Const Denies weight gain and Denies weight loss ENT Reports no additional complaints, Denies dysphagia and Denies odynophagia Card Reports no additional complaints Resp Reports no additional complaints GI Denies abdominal pain, Denies belching, Denies melena, Denies bloating, Denies hematochezia, Denies change in bowel habits, Denies constipation, Denies dysphagia, Denies excessive flatus, Denies dyspepsia, Denies heartburn, Denies diarrhea, Denies loose stools, Denies nausea, Denies odynophagia and Denies vomiting Reports no additional complaints Musc Reports no additional complaints Neuro Reports no additional complaints Psych Reports no additional complaints Endo Reports no additional complaints Physical Exam Vital Signs: Last Vital Signs Pulse 80 05/12/25 10:31 BP 102/66 05/12/25 10:31 Pulse Ox 100 05/12/25 10:31 Oxygen Delivery Method Room Air 05/12/25 10:31 BMI result Body Mass Index 22.7 Const General: healthy appearing, no acute distress and well developed Nutritional Appearance: well nourished Orientation/consciousness: patient oriented x3 Cardio Rate: regular rate GI Inspection: Yes normal to inspection and No distended Palpation (GI): Soft to palpation, not firm, nontender and No hepatosplenomegaly present Auscultation: normal bowel sounds General: Yes no CVA tenderness Back/Spine/Pelvis Back: no CVA tenderness Skin General skin exam: elasticity normal, turgor normal and dry skin Neuro General: patient oriented x3 Psych Appearance: grossly normal Mental Status: mental status grossly normal Affect: Anxious affect present Insight: Good insight present (Psych) Assessment & Plan Assessment & Plan (1) Transaminitis: Code(s): R74.01 - Elevation of levels of liver transaminase levels Category: Medical (2) Celiac disease: Code(s): K90.0 - Celiac disease Category: Medical (3) Chronic idiopathic constipation: Code(s): K59.04 - Chronic idiopathic constipation Category: Medical (4) GERD (gastroesophageal reflux disease): Code(s): K21.9 - Gastro-esophageal reflux disease without esophagitis Category: Medical Qualifiers: Esophagitis presence: esophagitis presence not specified Qualified Code(s): K21.9 - Gastro-esophageal reflux disease without esophagitis Plan Patient will continue taking omeprazole daily. Avoid dietary triggers and late night snacking. Staying upright for minimum 3 hours after meals discussed with patient. Patient will continue gluten free diet. Increase fluid intake and activity to promote better bowel motility. Patient will follow-up in our office in 4-6 months. Patient will call us if she will have any GI concerning symptoms. She is agreeable to this plan and verbalizes understanding of instructions. She was given the opportunity to ask questions and all questions answered. Thank you for allowing me to participate in her care Medications: Refilled omeprazole 20 mg PO DAILY 90 caps 3RF Coding Level of Care Code Est Pt Level 4 (56112) Complex EM visit Add On G2211 Diagnoses Transaminitis R74.01 Celiac disease K90.0 Chronic idiopathic constipation K59.04 Gastroesophageal reflux disease, unspecified whether esophagitis present K21.9 Esophagitis presence: esophagitis presence not specified Time Spent (min) 35 Comment 25 minutes spent with patient and additional 2 minutes spent reviewing her records
[2025-05-12 10:31] VITALS: BP 102/66; PULSE 80; O2SAT 100; BMI 22.7
== END 2025-05-12 10:57 | disposition home or self-care (01) ==
LOC: HO.HGI 10:23
PROVIDERS: PCP Internal Medicine; Visit Provider Nurse Practitioner Family
DX: R74.01 Elevation of levels of liver transaminase levels (principal); K90.0 Celiac disease; K21.9 Gastro-esophageal reflux disease without esophagitis
CPT/HCPCS: 99214

== ENCOUNTER 2025-06-04 09:14 | Outpatient (AMB) | payer OTHER, SELFPAY ==
--- NOTE | 2025-06-04 09:45 | A.OFFPC_ITS ---
Vital Signs 06/04/25 09:46 Height 5 ft 4 in Weight 132 lb 6 oz BMI 22.7 BP 120/60 Blood Pressure Location Lt brachial Position Sitting Pulse 66 Pulse Source Pulse Oximeter Temp 97.3 F Temp Source Temporal Artery Scan Pulse Oximetry (%) 98 Oxygen Delivery Method Room Air Intake Visit Reasons: Annual Exam Intake Note: Patient is here today for a physical. Coordinate Measuring Machine Technician Required: No Wink Cutter Operator: Not Required per policy Accompanied by: Self / Same As Patient Allergies hepatitis B virus vaccine Adverse Reaction (Unknown, Verified 06/04/25 10:15) Blurry Vision Medication List - Last Reconciled 06/04/25 by Kiley House MD cholecalciferol (vitamin D3) 50 mcg PO DAILY levothyroxine 88 mcg PO ONCE 90 days multivitamin 1 tab PO DAILY omeprazole 20 mg PO DAILY sennosides (Natural Senna Laxative) 17.2 mg (2 x 8.6 mg) PO BEDTIME Tobacco use date assessed: 06/04/25 Dental Screening Dental Screen Date: 12/02/24 HPI HPI Comments History of Present Illness Details The patient is a 44-year-old female presenting for an annual physical examination. Her medical history is notable for hypothyroidism, for which she takes levothyroxine 88 mcg and is followed by an global program director. She has a history of constipation, which is well-managed with one Senna tablet nightly as recommended by her slot ambassador, resulting in regular bowel movements. A recent endoscopy and colonoscopy in December showed mild findings on endoscopy and a normal colonoscopy, with the next one recommended in 10 years. The patient was previously evaluated by a research lab assistant/oncologist for an elevated total protein level, which was found to be normal on repeat testing and requires no further action. She has a known allergy to the Hepatitis B virus vaccine, which caused blurry vision. She recently had a Pap smear. Regarding her diabetes risk, the patient expressed concern after being told she might be prediabetic. However, her blood sugar in September was 72 mg/dL, and a previous result was 82 mg/dL, both within the normal range. Her family history is positive for a father with Parkinson's disease and a mother with diabetes. Her current medications include vitamin D, multivitamins, and omeprazole as needed. She stopped smoking and drinking alcohol some time ago. - Influenza vaccination: Patient request ed and will receive the flu shot today. - Colon cancer screening: Recent colonos copy in December was normal, with a 10-year follow-up interval recommended. - Cervical cancer screening: Patient had a recent Pap smear. - Laboratory screening: Labs will be [facility] [place] to check cholesterol and vitamin D levels. - Diabetes screening: Patient was concer joe about prediabetes, but review of recent labs (blood sugar 72 mg/dL in September) showed normal glucose levels, providing reassurance. - Healthy lifestyle discussion: Discusse d vitamin D sources, including sun exposure (20 minutes on legs, 2-3 times per week) and dietary intake of salmon, though patient verbalized a preference for oral supplements. PFSH Medical History GERD (gastroesophageal reflux disease) Elevated cholesterol Pre-diabetes Thyroid disease Celiac disease Fibroid Abnormal Pap smear of cervix Heavy menses Over weight Surgical History Hx of colonoscopy History of esophagogastroduodenoscopy (EGD) Family History Mother Diabetes Father Parkinson disease Family/Other Substance use disorder Mental health disorder Maternal Grandfather Heart transplant status Social History Household Members: Family Housing: House Are you a primary nonfarm animal caretaker to a significant other at home: No Do you presently have visiting nurse or other home services: No Alcohol intake: former Patient Tobacco Use Status: Former Tobacco user e-Cigarette/Vaping Use: Never Used Second Hand Smoke Exposure: Yes service: No Current occupational status: employed Current occupation: [employer] Current occupational exposures/hazards: No Cognitive needs: No Hearing needs: No Vision needs: Yes Questionnaire Thrive Questionnaire Date Thrive assessed: 12/02/24 I am a: Patient What is your living situation today?: I have a steady place to live Within the past 12 months, did the food you bought not last and you didn't have the money to get more?: Never true Within the past 12 months, did you worry whether your food would run out before you got money to buy more?: Never true Do you have trouble paying for medicines?: No Do you have trouble getting transportation to medical appointments?: No Do you have trouble paying your heating and electricity bill?: No Do you have trouble taking care of your child, family member or friend?: No Do you have trouble with day-to-day activities such as bathing, preparing meals, shopping, managing finances, etc.?: No Are you currently unemployed and looking for a job?: No Are you interested in more education?: No Please select the resources that you would like help with: None Currently or been in a relationship where the following occur: No concerns reported THRIVE Score: 0 AUDIT C Alcohol Use Questionnaire (AUDIT-C) 1. How often do you have a drink containing alcohol?: Monthly or less 2. How many drinks containing alcohol do you have on a typical day when you are drinking?: 1 or 2 3. How often do you have six or more drinks on one occasion?: Never Total Score: 1 Score Reviewed/Action Taken: No NGHIA-7 AMB Questionnaire NGHIA-7 Date NGHIA - 7 assessed: 12/02/24 Source: Developed by Drs. Gold Jimenez, Sima Villalobos, Alexis Madrid and colleagues, with an educational garrett from [employer]. Review of Systems Const All systems reviewed & are unremarkable except as noted in HPI and below Card Denies chest pain at rest, Denies chest pain with activity, Denies edema, Denies irregular heart rhythm, Denies claudication, Denies dyspnea, Denies dyspnea on exertion, Denies orthopnea, Denies paroxysmal nocturnal dyspnea and Denies slow heart rate Resp Denies cough, Denies dyspnea and Denies dyspnea on exertion GI Denies abdominal pain, Denies change in bowel habits, Denies excessive flatus, Denies nausea and Denies vomiting Denies urinary incontinence, Denies urinary hesitancy and Denies urinary urgency Musc Denies atrophy, Denies deformity and Denies limited range of motion Skin/Breast Denies bleeding lesions, Denies changing lesions and Denies rash Physical exam (Primary Care) Vital Signs: Last Vital Signs Temp 97.3 F 06/04/25 09:46 Pulse 66 06/04/25 09:46 BP 120/60 06/04/25 09:46 Pulse Ox 98 06/04/25 09:46 Oxygen Delivery Method Room Air 06/04/25 09:46 BMI result Body Mass Index 22.7 Tobacco/Smoking Status: Tobacco use Status Tobacco use date assessed 06/04/25 06/04/25 09:50 Patient Tobacco Use Status Former Tobacco user 06/04/25 09:50 e-Cigarette/Vaping Use Never Used 06/04/25 09:50 Thrive Assessment: Date of Thrive Assessment Date Thrive assessed 12/02/24 06/04/25 09:50 Currently or been in a relationship where the following occur: No concerns reported [facility] Head: Yes normal to inspection, Yes normocephalic and Yes atraumatic Ears: external ears normal Eyes General: appearance normal, both eyes and all related structures Eyelids: Yes eyelids normal Conjunctivae: conjunctivae normal Neck Neck: Yes normal visual inspection and Yes supple Resp Effort & Inspection: normal respiratory effort Auscultation: clear to auscultation bilaterally Cardio Jugular venous distension: no JVD Rate: regular rate Rhythm: regular rhythm Heart sounds: S1 normal heart sound present and S2 normal heart sound present GI Inspection: Yes normal to inspection Palpation (GI): Soft to palpation and nontender Auscultation: normal bowel sounds Skin General skin exam: no rashes or lesions noted Neuro General: no focal motor deficits Extrem General: Yes full ROM Psych Appearance: grossly normal Office Procedures Flu Questionnaire Does the patient have a severe egg allergy?: No Does the patient have severe life threatening allergies?: No Does the patient have a fever or illness today?: No Has the patient ever had Guillain-[place] Syndrome?: No Has the patient ever had any past reaction to a flu shot?: No Immunizations Fluarix [id number] (PF) 45 mcg (15 mcg x 3)/0.5 mL IM syringe Performing Provider: Kiley House MD [facility] Administered by: Flora Toribio RN on 06/04/25 10:49 Dose Route Admin Location Dispensed Lot Number Expiration Date [facility] Mental Health Director 0.5 mL IM Right Deltoid 0.5 mL [id number] 01/20/26 [id number] [employer] VIS Given Date VIS Provided VIS Publication Date 06/04/25 Single Vaccine 24 Eligibility Eligibility Date Funding Source Not [facility] Eligible 06/04/25 Private Coding Level of Care Code Est Pt Prev Care 40-64y(90059) Diagnoses Physical exam Z00.00 Time Spent (min) 32 Assessment & Plan Assessment & Plan (1) Physical exam: Code(s): Z00.00 - Encounter for general adult medical examination without abnormal findings Category: Medical Plan Plan 1. Annual Health Maintenance Examination The patient presents for a routine annual physical. The plan includes administering the influenza vaccine today. Orders will be placed for a cholesterol panel and a vitamin D level check. Orders: Orders Vitamin D 25-OH Total 1 Week E55.9 - Vitamin D deficiency, unspecified Influenza [id number] Immunization Today Z23 - Encounter for immunization Lipid Panel 1 Week E78.5 - Hyperlipidemia, unspecified
[2025-06-04 09:46] VITALS: BP 120/60; PULSE 66; TEMP 36.3; O2SAT 98; BMI 22.7
== END 2025-06-04 10:50 | disposition home or self-care (01) ==
LOC: HO.HMCH 09:15
PROVIDERS: PCP Internal Medicine; Visit Provider Internal Medicine
DX: Z00.00 Encounter for general adult medical examination without abnormal findings (principal); Z23 Encounter for immunization

== ENCOUNTER → 2025-06-04 09:14 | Outpatient (BNVA) | payer OTHER, SELFPAY | PROVIDERS: PCP Internal Medicine; Visit Provider Internal Medicine | DX: Z23 Encounter for immunization (principal); Z00.00 Encounter for general adult medical examination without abnormal findings | CPT/HCPCS: 90471; 90656 ==

== ENCOUNTER 2025-06-24 10:42 | Outpatient (REF) | payer OTHER, SELFPAY ==
[2025-06-24 10:55] LABS: MANUAL DIFF FLAG NO
[2025-06-24 11:01] LABS: Hematocrit 41.4 % (37.0-47.0); Hemoglobin 13.5 g/dl (12.0-16.0); Imm Gran Abs Auto 0.03 X10*3/uL (0.00-0.03); Imm Gran Pct Auto 0.3 % (0.0-0.4); Lymphocytes Absolute Auto 1.9 X10*3/uL (1.2-4.9); Mean Corpuscular HGB Conc 32.6 g/dl (31.0-35.0); Mean Corpuscular Hemoglobin 28.1 pg (27.0-33.0); Mean Corpuscular Volume 86.1 fL (80.0-98.0); NRBC Abs Auto 0.000 X10*3/uL (0.0-0.012); NRBC Pct Auto 0.0 /100WBC (0.0-0.2); Platelet Count 282 X10*3/uL (160-400); Red Blood Count 4.81 X10*6/uL (4.20-5.50); White Blood Count 9.1 X10*3/uL (4.8-10.8)
[2025-06-24 11:51] LABS: Alanine Aminotransferase 22 U/L (0-31); Albumin Level 4.4 g/dL (3.5-5.0); Alkaline Phosphatase 77 U/L (39-117); Anion Gap 13 (12-20); Aspartate Amino Transferase 26 U/L (5-31); Blood Urea Nitrogen 6 mg/dL (9-16); Calcium 9.4 mg/dL (8.4-10.2); Carbon Dioxide 28 mmol/L (22-29); Chloride 103 mmol/L (96-108); Cholesterol 208 mg/dL (<200); Estimated Glomerular Filt Rate > 60; HDL Cholesterol 63 mg/dL (>40); Iron 36 mcg/dL (30-160); Percent Iron Saturation 13 % (15-50); Potassium 4.1 mmol/L (3.3-5.1); Sodium 140 mmol/L (135-145); Total Iron Binding Capacity 270 mcg/dL (228-428); Total Protein 8.3 g/dL (6.5-8.0); Triglycerides 71 mg/dL (<150); Unsaturated Iron Binding 234 ug/dL
[2025-06-24 12:09] LABS: Thyroid Stimulating Hormone 7.67 uIU/mL (0.32-4.0)
[2025-06-24 12:19] LABS: Folate 5.8 ng/mL (> or = 4.0); Vitamin B12 281 pg/mL (200-900)
[2025-06-24 12:26] LABS: Appearance Urine Cloudy; Glucose Urine UA Negative (Negative); PH 8.5 (5.0-9.0); Specific Gravity - Urine 1.010 (1.005-1.025); UMIC TRIGGER UACC YES
[2025-06-24 12:29] LABS: UACC Culture Trigger YES
== END 2025-06-24 10:43 | disposition home or self-care (01) ==
LOC: HO.LAB 10:42
PROVIDERS: Visit Provider Internal Medicine
DX: Z00.00 Encounter for general adult medical examination without abnormal findings (principal); E53.8 Deficiency of other specified B group vitamins; D64.9 Anemia, unspecified; E55.9 Vitamin D deficiency, unspecified; E03.9 Hypothyroidism, unspecified; R74.01 Elevation of levels of liver transaminase levels; E78.5 Hyperlipidemia, unspecified
CPT/HCPCS: 36415; 80053; 80061; 81001; 82306; 82607; 82746; 83540; 84443; 85025; 87086; 87088; 87186